=== PATIENT | male | born 1965 | race Caucasian/White ===

== ENCOUNTER 2016-06-14 21:15 | Inpatient (IN) | payer OTHER ==
[~2016-06-14] VITALS: Ht 185.4 cm; Wt 129.0 kg
[~2016-06-14 21:15] MED LIST: ASPI81TA28 PO; DOCU100C31 PO; INSUINJ SC; LISI10TA PO; NAPR375T3 PO; RANI1TAB77 PO; SULF800T23 PO
[2016-06-14] MEDS ORDERED: CEFEPIME IV 2,000 MG in DEXTROSE 5% 100ML 100 ML IV STA (21:48)
[2016-06-14] MEDS ORDERED: SODIUM CHLORIDE 0.9% 1000ML 1,000 ML IV STA ×2 (21:48)
[2016-06-14] MEDS ORDERED: VANCOMYCIN INJ 2,800 MG in SODIUM CHLORIDE 0.9% 500ML 500 ML IV SCH (22:00)
[2016-06-14] MEDS ORDERED: ONDANSETRON INJ 2 MG/ML 2 ML VIAL IV STA (22:01)
[2016-06-14 22:13] LABS: BASO % 0.2 %; BASO ABS # 0.02 K/uL (0-0.2); COMPLETE YES; EOS % 0.7 %; HEMATOCRIT 37.7 % (42-52); IG% 0.5 %; LYMPH % 13.1 %; LYMPH ABS # 1.64 K/uL (1.2-3.4); MEAN CELL VOLUME 79.9 fL (80-100); MEAN CORPUSCULAR HEMOGLOBIN 27.3 pg (25-34); MEAN CORPUSCULAR HGB CONC 34.2 g/dl (32-36); MEAN PLATELET VOLUME 9.2 fL (7.4-10.4); MONO % 6.1 %; NEUT % 79.4 %; PLATELET COUNT 562 K/uL (130-400); RED BLOOD COUNT 4.72 M/uL (4.7-6.1); WHITE BLOOD COUNT 12.55 K/uL (4.8-10.8)
[2016-06-14 22:25] LABS: PARTIAL THROMBOPLASTIN RATIO 1.1; PROTHROMBIN TIME (PATIENT) 11.1 SECONDS (9.0-12.0)
[2016-06-14 22:34] LABS: BLOOD UREA NITROGEN 11 mg/dl (7-18); GLUCOSE 406 mg/dl (70-99)
[2016-06-14 22:35] LABS: ISTAT CREATININE 0.8 mg/dl (0.6-1.3); ISTAT HEMOGLOBIN 13.9 g/dl (14.0-18.0); ISTAT IONIZED CALCIUM 1.13 mmol/l (1.12-1.32)
[2016-06-14 22:35] LABS: ALB/GLOB RATIO 0.6 (0.9-2); ALT/SGPT 24 U/L (12-78); AST/SGOT 14 U/L (15-37); CARBON DIOXIDE 26 mmol/L (21-32); CHLORIDE 96 mmol/L (98-107); MAGNESIUM 1.8 mg/dl (1.8-2.4); POTASSIUM 4.2 mmol/L (3.5-5.1); SODIUM 132 mmol/L (136-145)
[2016-06-14] MEDS ORDERED: GLIP5TAB11 PO (22:38)
[2016-06-14] MEDS ORDERED: INSDGI SC (22:38)
[2016-06-14 22:44] LABS: ALKALINE PHOSPHATASE 249 U/L (45-117); CKMB/CK RATIO 3.8 (0-3.0)
[2016-06-14 22:51] LABS: BETA-HYDROXYBUTYRATE 3.54 mg/dL (0.2-2.81)
--- NOTE | 2016-06-14 22:51 | DIAGNOSTIC IMAGING REPORT ---
CHEST ONE VIEW PORTABLE CLINICAL HISTORY: Sepsis COMPARISON STUDY: No previous studies for comparison. FINDINGS: The heart is at the upper limits of normal in size. The patient is taking a poor inspiration. There is no lobar consolidation. There is mild interstitial thickening finding which is likely accentuated by the patient's large body habitus. There are no pleural effusions.[ IMPRESSION: Mild interstitial thickening, a finding which may be related to technical factors. There is no lobar consolidation. There is no overt failure Electronically signed by: Christiano Urrutia M.D. 06/14/2016 10:50 PM Dictated Date/Time: 06/14/2016 10:49 PM
--- NOTE | 2016-06-14 22:55 | DIAGNOSTIC IMAGING REPORT ---
RIGHT FOOT MIN 3 VIEWS ROUTINE CLINICAL HISTORY: Right foot infection COMPARISON: None. DISCUSSION: There are postsurgical changes of an amputation at the level of the distal first metatarsal. There are postsurgical changes of an amputation at the level of the distal fifth metatarsal. There are old fractures involving the third and fourth metatarsals. There is a soft tissue ulceration at the level of the proximal phalanx the second toe. There is diffuse soft tissue swelling at this level. There is focal osteopenia involving the head of the second metatarsal, with equivocal destructive changes. There is a fracture versus osteomyelitis involving the base of the proximal phalanx of the second toe. IMPRESSION: 1. Postsurgical changes 2. Marked soft tissue swelling involving the second toe with an overlying ulcer 3. Fracture versus pathologic fracture secondary to osteomyelitis involving the base of the proximal phalanx of the second toe. There is also profound osteopenia involving the second metatarsal head with equivocal destructive changes Electronically signed by: Christiano Urrutia M.D. 06/14/2016 10:54 PM Dictated Date/Time: 06/14/2016 10:50 PM
[2016-06-14 23:06] LABS: C-REACTIVE PROTEIN 4.98 mg/dl (0-0.29)
[2016-06-14] MEDS ORDERED: OPTIRAY 320 IV PRN (23:15)
[2016-06-15] VITALS (9 sets, daily range): BP systolic 114–135; BP diastolic 64–83; PULSE 66–80; TEMP 36.2–37.2; O2SAT 92–99; BMI 37.5
[2016-06-15] MEDS ORDERED: NovoLIN-R INSULIN PER UNIT CHARGE IV STA (00:34)
--- NOTE | 2016-06-15 00:35 | EMERGENCY ROOM VISIT NOTE ---
History First contact with patient: 21:29 Chief Complaint: WOUND INFECTION Stated Complaint: DIABETIC ULCER R FT, FEVER Nursing Triage Summary: pt presents to ED B11b with c/o infected wound on foot. pt states he has a hx of great and little toe on right foot amputated in 2012. reports hx of DM. states present problem began "a couple months ago" when callous on bottom/ball of right foot "fell off." reports area underneath second toe and wound on the side of second toe opened up ~2 weeks ago and ankle became swollen. reports yellow green drainage and foul smell to wounds. reports tunneling in wounds. states he was self medicating and has not been to medical at the [facility]way. reports he went today "for something else" and "I just showed it to them too, it smelled so bad in that other bag." pt presents with plastic bag around foot and gauze over wound. pt also associates sob/fevers/chills/decreased appetite upon assessment, pt has wound on bottom/ball right foot measuring 22cm across and 29cm from upper right corner (about 1o clock while looking at wound) to lower left corner. wound has 5cm tunnel in right/upper corner (approx 1o clock) . skin around wound is white to yellow to reddened. yellow/green drainage noted. wound on the left inside of second toe measures is an oval that measures 25 cm at the largest part and 13cm across. yellow/green drainage noted. 20 cm tunnel measured going down toward bottom of foot and toes. pt has a crack-like wound under second toe measuring approx 30cm across. skin around is white/yellow. pt reports decreased sensation in right foot. swelling in foot/ankle ~+3. pedal pulse in left foot palpated. pedal pulse in right foot found by doppler and marked with X History of Present Illness The patient is a 50 year old male who presents to the Emergency Room with complaints of fever, chills, nausea, body aches, shortness of breath, right leg swelling and drainage, high blood sugars and right foot infection for the past week that has been progressively worse. Diabetic ulcer has been present for a few months now. It is any progressive worse. Patient just thought it would go away. He does have neuropathy. He had a fever for the past few days but does not know what the temperature was. He was sent in from the custodial. Patient denies chest pain, vomiting, diarrhea, cough, congestion, headache, neck stiffness. Blood sugars have been in the 400 to 500s per patient. He states he did not seek help as he is up for a parole in 2 weeks. Patient has had osteomyelitis before with a PICC line. No history of heart disease or PE. Patient does not actively smoke. Review of Systems See HPI for pertinent positives & negatives. A total of 10 systems reviewed and were otherwise negative. Past Medical/Surgical History Diabetes, neuropathy, hypertension, hyperlipidemia, GERD, amputation of right foot first and fifth toes from osteomyelitis Social History Smoking Status: Former Smoker Marital Status: single Occupation Status: other Current/Historical Medications Scheduled Amoxicillin & Pot Clavulanate (Augmentin 875-125 mg), 1 TAB PO BID Aspirin (Aspirin Ec), 81 MG PO DAILY Ceftriaxone Sod (Rocephin), 2 GM IV DAILY Docusate Sodium (Docusate Sodium), 100 MG PO DAILY Insulin Aspart (Novolog), 8 UNITS SC AC Insulin Glargine (Lantus), 50 UNITS SC HS Lisinopril (Prinivil), 10 MG PO DAILY Ranitidine HCl (Ranitidine [address]), 150 MG PO BID Scheduled PRN Oxycodone/Acetaminophen 5MG/325MG (Percocet 5MG/325MG), 1 TAB PO Q4H PRN for Pain Allergies Coded Allergies: Morphine (Unverified Allergy, Unknown, RASH, 06/15/14) Physical Exam Vital Signs Date Time Temp Pulse Resp B/P Pulse Ox O2 Delivery O2 Flow Rate FiO2 06/14/16 23:54 74 18 123/67 95 Room Air 06/14/16 22:29 98 Room Air 06/14/16 22:28 85 20 130/76 98 Room Air 06/14/16 21:54 87 06/14/16 21:28 37.0 90 18 148/74 94 Room Air Physical Exam VITALS: Vitals are noted on the nurse's note and reviewed by myself. Vital signs stable. GENERAL: Pleasant male, in no acute distress, nondiaphoretic, well-developed well-nourished. SKIN: Right foot with first and fifth toe amputated with ulcers to the bottom of the foot and top of the foot that is quite edematous malodorous with purulent discharge and surrounding erythema up the foot concerning for osteomyelitis. The rest of the skin was without rashes, erythema, edema, or bruising. There is no tenting of the skin. Capillary reflex less than 2 seconds. HEAD: Normocephalic atraumatic. EARS: External auditory canals clear, tympanic membranes pearly alonso without erythema or effusion bilaterally. EYES: Pupils equal round and reactive to light and accommodation. Conjunctivae without injection, sclerae without icterus. Extraocular movements intact. NOSE: Patent, turbinates without inflammation or discharge. MOUTH: Mucous membranes moist. Pharynx without erythema or exudate. Uvula midline. Airway patent. Tongue does not deviate. NECK: Supple without nuchal rigidity. No lymphadenopathy. No thyromegaly. Cervical spine is nontender. No JVD. HEART: Regular rate and rhythm without murmurs gallops or rubs. LUNGS: Clear to auscultation bilaterally without wheezes, rales or rhonchi. No dullness to percussion. No retractions or accessory muscle use. ABDOMEN: Positive bowel sounds x 4. Normal tympanic percussion. Soft, nontender, without masses or organomegaly. Caceres sign negative. No guarding or rebound tenderness. MUSCULOSKELETAL: No muscle atrophy noted. Right leg is quite edematous up to the knee with pedal pulses +2 equal present bilaterally.Right foot with first and fifth toe amputated with 2.5 cm diameter ulceration present on the plantar surface of his right foot. It is over the 2nd metatarsal. There is currently pus draining from the ulceration. He has a small fissure present on the undersurface of the second toe. There is also pus there. Lastly, there is oval 1.5 x 2.5 cm ulceration present on the dorsum of his foot. There is also creamy pus expressed from this area. to the bottom of the foot and top of the foot that is quite edematous malodorous and surrounding erythema up the foot concerning for osteomyelitis. NEURO: Patient was alert and oriented to person place and time. Decreased sensation up to the ankles bilaterally which is chronic per patient No focal neurological deficits. Medical Decision & Procedures Laboratory Results 06/14/16 22:00 Red Blood Count 4.72, Mean Corpuscular Volume 79.9, Mean Corpuscular Hemoglobin 27.3, Mean Corpuscular Hemoglobin Concent 34.2, Mean Platelet Volume 9.2, Neutrophils (%) (Auto) 79.4, Lymphocytes (%) (Auto) 13.1, Monocytes (%) (Auto) 6.1, Eosinophils (%) (Auto) 0.7, Basophils (%) (Auto) 0.2, Neutrophils # (Auto) 9.98, Lymphocytes # (Auto) 1.64, Monocytes # (Auto) 0.76, Eosinophils # (Auto) 0.09, Basophils # (Auto) 0.02 06/14/16 22:00 Test 06/14/16 22:00 06/14/16 22:03 White Blood Count 12.55 K/uL (4.8-10.8) Red Blood Count 4.72 M/uL (4.7-6.1) Hemoglobin 12.9 g/dL (14.0-18.0) Hematocrit 37.7 % (42-52) Mean Corpuscular Volume 79.9 fL (80-100) Mean Corpuscular Hemoglobin 27.3 pg (25-34) Mean Corpuscular Hemoglobin Concent 34.2 g/dl (32-36) Platelet Count 562 K/uL (130-400) Mean Platelet Volume 9.2 fL (7.4-10.4) Neutrophils (%) (Auto) 79.4 % Lymphocytes (%) (Auto) 13.1 % Monocytes (%) (Auto) 6.1 % Eosinophils (%) (Auto) 0.7 % Basophils (%) (Auto) 0.2 % Neutrophils # (Auto) 9.98 K/uL (1.4-6.5) Lymphocytes # (Auto) 1.64 K/uL (1.2-3.4) Monocytes # (Auto) 0.76 K/uL (0.11-0.59) Eosinophils # (Auto) 0.09 K/uL (0-0.5) Basophils # (Auto) 0.02 K/uL (0-0.2) RDW Standard Deviation 37.8 fL (36.4-46.3) RDW Coefficient of Variation 13.2 % (11.5-14.5) Immature Granulocyte % (Auto) 0.5 % Immature Granulocyte # (Auto) 0.06 K/uL (0.00-0.02) Erythrocyte Sedimentation Rate 74 mm/hr (0-14) Prothrombin Time 11.1 SECONDS (9.0-12.0) Prothromb Time International Ratio 1.0 (0.9-1.1) Activated Partial Thromboplast Time 28.5 SECONDS (21.0-31.0) Partial Thromboplastin Ratio 1.1 Est Creatinine Clear Calc Drug Dose 109.5 ml/min Estimated GFR () 90.2 Estimated GFR (Non- 77.9 BUN/Creatinine Ratio 10.0 (10-20) Bedside Lactic Acid Venous 1.45 mmol/L (0.90-1.70) Calcium Level 9.0 mg/dl (8.5-10.1) Magnesium Level 1.8 mg/dl (1.8-2.4) Total Bilirubin 0.6 mg/dl (0.2-1) Aspartate Amino Transf (AST/SGOT) 14 U/L (15-37) Alanine Aminotransferase (ALT/SGPT) 24 U/L (12-78) Alkaline Phosphatase 249 U/L (45-117) Total Creatine Kinase 40 U/L (39-308) Creatine Kinase MB 1.5 ng/ml (0.5-3.6) Creatine Kinase MB Ratio 3.8 (0-3.0) Troponin I < 0.015 ng/ml (0-0.045) C-Reactive Protein 4.98 mg/dl (0-0.29) Total Protein 8.6 gm/dl (6.4-8.2) Albumin 3.2 gm/dl (3.4-5.0) Globulin 5.4 gm/dl (2.5-4.0) Albumin/Globulin Ratio 0.6 (0.9-2) Beta-Hydroxybutyric Acid 3.54 mg/dL (0.2-2.81) Bedside Hemoglobin 13.9 g/dl (14.0-18.0) Bedside Hematocrit 41 % (42-52) Bedside Sodium 134 mEq/L (135-144) Bedside Potassium 4.5 mEq/L (3.3-5.0) Bedside Chloride 93 mEq/L (101-112) Bedside Total CO2 25 mEq/l (24-31) Anion Gap 21.0 mmol/L (16-25) Bedside Blood Urea Nitrogen 11 mg/dl (7-18) Bedside Creatinine 0.8 mg/dl (0.6-1.3) Bedside Glucose (other) 417 mg/dl (70-99) Bedside Ionized Calcium (Wilner) 1.13 mmol/l (1.12-1.32) Medications Administered Medications (Trade) Dose Ordered Sig/Terence Route Start Time Stop Time Status Last Admin Dose Admin Cefepime HCl 2000 mg/Dextrose 112.5 ml @ 200 mls/hr NOW STAT IV 06/14/16 21:48 06/14/16 22:21 DC 06/14/16 22:34 200 MLS/HR Vancomycin HCl 2800 mg/Sodium Chloride 556 ml @ 200 mls/hr UD IV 06/14/16 22:00 06/24/16 21:59 06/14/16 23:02 200 MLS/HR Sodium Chloride 1,000 ml @ 999 mls/hr Q1H1M STAT IV 06/14/16 21:48 06/14/16 22:48 DC 06/14/16 22:34 999 MLS/HR Sodium Chloride (Nss 1000ml) 1,000 ml @ 125 mls/hr Q8H STAT IV 06/14/16 21:48 06/15/16 05:47 06/14/16 23:54 125 MLS/HR Ondansetron HCl (Zofran Inj) 4 mg NOW STAT IV 06/14/16 22:01 06/14/16 22:02 DC 06/14/16 23:00 4 MG ED Course Prior records reviewed and summarized as above. Triage Nursing notes reviewed. Additional history obtained from correctional officers The patient's history was concerning for swelling and redness of the skin. Differential diagnosis: Etiologies such as osteomyelitis, cellulitis, abscess, MRSA infection, DVT, necrotizing fasciitis, dermatitis, drug eruption, as well as others were entertained.. Physical examination: As above ER treatment provided: Vancomycin, cefepime On reassessment the patient felt better. Diagnostics interpreted by me: EKG: Normal sinus, normal intervals, no acute ST-T wave changes. Impression normal sinus rhythm interpreted by myself The labs revealed leukocytosis. Hyperglycemia without DKA. Wound culture taken and sent to lab for cultures pending Imaging studies: US VENOUS RIGHT LOWER EXTREMITY: Comparison: No prior right lower extremity venous Doppler available. CT right foot 06/14/16. No evidence of deep venous thrombosis. Right inguinal lymph nodes largest approximately 5 x 3 x 2 cm likely reactive lymph notes. Radiologist: Keyon Willoughby M.D. CT EXTREMITY RIGHT LOWER: Comparison: Right foot radiograph 06/14/16 erosive changes of the head of the second metatarsal with fracture deformity in addition to erosive change at the base of the proximal phalanx of the second toe with air densities in the head of the second metatarsal. Findings are compatible with osteomyelitis involving these bones. There is adjacent prominent soft tissue inflammation with soft tissue swelling extending throughout the second toe and also at the plantar soft tissues of the distal foot at the second metatarsal phalangeal level with some extension posteriorly to the midfoot along the expected flexor digitorum tendon. There is soft tissue ulceration at the plantar distal foot at the level of the second metatarsophalangeal joint level. Subcutaneous edema and inflammatory change in the mid and distal foot are noted. No distinct soft tissue abscess is seen. Amputation of the great toe at the first metatarsophalangeal joint level and also of the fifth toe with old posttraumatic deformity of the third through fifth metatarsals are noted. Degenerative changes of several of the joints are present. No joint dislocation. Radiologist: Keyon Willoughby M.D. Consultation: A consultation was placed with Dr. Ramon, hospitalist. The case was discussed and diagnostics were reviewed. The patient was evaluated in the ER for further treatment. I consulted the pharmacist and spoke to Kristine who recommends cefepime and vancomycin. This appears to be osteomyelitis of the right foot. She was started on antibiotics immediately. 2 lines were initiated. Wound culture was taken. He will be evaluated by medicine for possible admission. CT was consistent with osteomyelitis. Patient is given insulin. By the evaluation outlined above emergent etiologies such as DVT, as well as others were deemed relatively unlikely. The pt informed about the findings as listed above. All questions were answered and pleased with the treatment. case reviewed with my Attending Medical Decision As above Impression Primary Impression: Acute osteomyelitis of toe of right foot Additional Impression: Hyperglycemia due to type 2 diabetes mellitus Departure Information Dispostion Being Evaluated By Hospitalist Condition FAIR Prescriptions Amoxicillin & Pot Clavulanate (Augmentin 875-125 mg) 1 Tab Tab 1 TAB PO BID for 14 Days, #28 TAB Start this Antibiotic after 5 days of Rocephin (Ceftriaxone). Prov: Sorin Jerry M.D. 06/16/16 Ceftriaxone Sod (Rocephin) 1 Gm Inj 2 GM IV DAILY for 5 Days, #1 VIAL Start this Antibiotic before starting the Augmentin. Prov: Sorin Jerry M.D. 06/16/16 Insulin Aspart (NOVOLOG) 100 Units/Ml Inj 8 UNITS SC AC for 30 Days, #1 VIAL Prov: Sorin Jerry M.D. 06/16/16 Insulin Glargine (Lantus) 100 Unit/Ml Inj 50 UNITS SC HS for 30 Days, #30 VIAL Prov: Sorin Jerry M.D. 06/16/16 Oxycodone/Acetaminophen 5MG/325MG (PERCOCET 5MG/325MG) Tab 1 TAB PO Q4H Y for Pain for 10 Days, TAB PAIN Prov: April Sharma M.D. 06/16/16 Referrals Adriane ROSA (PCP) Patient Instructions [facility] Problem Qualifiers Additional Impression: Hyperglycemia due to type 2 diabetes mellitus Diabetes mellitus terminal makeup operator insulin use: with fci use Qualified Codes: E11.65 - Type 2 diabetes mellitus with hyperglycemia; Z79.4 - USP ( current) use of insulin
[2016-06-15] MEDS ORDERED: ACETAMINOPHEN 325 MG TAB PO PRN (00:45)
[2016-06-15] MEDS ORDERED: INSULIN GLARGINE PER SC STA (00:45)
[2016-06-15] MEDS ORDERED: ALUMINUM/MAGNESIUM/SIMETH (MAALOX MAX) 30 ML UDC PO PRN (00:45)
[2016-06-15] MEDS ORDERED: MAGNESIUM HYDROXIDE SUSP 30 ML UDC PO PRN (00:45)
[2016-06-15] MEDS ORDERED: ONDANSETRON INJ 2 MG/ML 2 ML VIAL IV PRN ×2 (00:45→13:00)
[2016-06-15] MEDS ORDERED: VANCOMYCIN INJ 1,000 MG in SODIUM CHLORIDE 0.9% 250ML 250 ML IV STA (01:14)
[2016-06-15] MEDS ORDERED: PIPERACILL/TAZOBAC IV 4.5 GM in DEXTROSE 5% 100ML 100 ML IV SCH (01:15)
[2016-06-15] MEDS ORDERED: INSULIN GLARGINE SOLOSTAR 100 UNITS/ML 3 ML PEN SC STA (02:04)
[2016-06-15] MEDS ORDERED: PIPERACILL/TAZOBAC CONSULT ACTIVE PRN (02:30)
[2016-06-15] MEDS ORDERED: VANCOMYCIN CONSULT ACTIVE PRN (02:45)
[2016-06-15] MEDS: PIPERACILL/TAZOBAC IV 4.5 GM in DEXTROSE 5% 100ML IV SCH ×3 (03:40→22:14)
--- NOTE | 2016-06-15 04:38 | Pharmacy Progress Note ---
Pharmacy Antibiotic Consult Date of Service: Jun 15, 2016. Pharmacy Dosing Scope Pharmacy is consulted to initiate Vancomycin IV dosing therapy, order appropriate labs and adjust drug dose/frequency. Subjective The patient is a 50 year old (diabetic, prisoner) male admitted on Jun 15, 2016 at 02:09 for osteomyelitis. Objective Height (Feet): 6 Height (Inches): 1.00 Weight (Kilograms): 129.000 Lab Results (24hrs): Laboratory Tests Test 06/14/16 22:00 BUN/Creatinine Ratio 10.0 Blood Urea Nitrogen 11 mg/dl Creatinine 1.10 mg/dl White Blood Count 12.55 K/uL Red Blood Count 4.72 M/uL Hemoglobin 12.9 g/dL Hematocrit 37.7 % Mean Corpuscular Volume 79.9 fL Mean Corpuscular Hemoglobin 27.3 pg Mean Corpuscular Hemoglobin Concent 34.2 g/dl Platelet Count 562 K/uL Mean Platelet Volume 9.2 fL Neutrophils (%) (Auto) 79.4 % Lymphocytes (%) (Auto) 13.1 % Monocytes (%) (Auto) 6.1 % Eosinophils (%) (Auto) 0.7 % Basophils (%) (Auto) 0.2 % Neutrophils # (Auto) 9.98 K/uL Lymphocytes # (Auto) 1.64 K/uL Monocytes # (Auto) 0.76 K/uL Eosinophils # (Auto) 0.09 K/uL Basophils # (Auto) 0.02 K/uL Micro Results: * Blood and wound cultures are pending Recent Pertinent Medications * Patient received cefepime 2gm IV x1 dose in ED. * Upon admission patient is also receiving Zosyn 4.5gm IV every 8 hours Assessment & Plan * Loading dose: 2800 mg IV (~ 23mg/kg) X 1 dose then 1650mg IV (~ 13.6mg/kg) every 10 hours. * Goal trough level estimate: between 16-19 mcg/mL. * Trough level is ordered for 06/16/16 at 0330 just prior to the 4th dose. Pharmacy will continue to follow and will adjust dose/frequency as necessary. Thank you
--- NOTE | 2016-06-15 05:13 | History and Physical ---
History & Physical Date & Time of Service: Jun 15, 2016 at 05:02 Chief Complaint: Acute Osteomyelitis Of Toe Of Right Foot Primary Care Physician: Adriane ROSA History of Present Illness Source: patient This is a 50 yo m with poorly controlled DM that is presenting to us with Osteomyelitis of the right second toe. The patient that he has no pain in the right LE because of neuropathy. He just noticed that "for a while now" it felt like he was walking on a callus. He looked and noticed a blister. The blister broke approx 2 weeks prior and he noticed green pus that came from it. Because of the increasing swelling and drainage he came to the ED for evaluation. Xray revealed Fracture versus pathologic fracture secondary to osteomyelitis involving the base of the proximal phalanx of the second toe. There is also profound osteopenia involving the second metatarsal head with equivocal destructive changes. He was given Cefepime in the ED. When asked about why he waited so long to be taken care of he states that he will be sent from the [facility] a [facility] in 20 days and he had things he needed to take care of. We discussed the need for IV abx and length of time and he does not feel like the half way house will be able to allow him to have the abx. Past Medical/Surgical History DM HTN s/p amputation of right large toe Family History No pertinent family history Social History Smoking Status: Current Some Day Smoker Smokeless Tobacco Use: No Alcohol Use: none Drug Use: none Marital Status: single Occupational Status: other Multi-Drug Resistant Organisms History of MDRO: Yes Type of MDRO: MRSA Allergies Coded Allergies: Morphine (Unverified Allergy, Unknown, RASH, 06/15/14) Home Medications Scheduled Aspirin (Aspirin Ec), 81 MG PO DAILY Docusate Sodium (Docusate Sodium), 100 MG PO DAILY Glipizide (Glucotrol), 5 MG PO DAILY Insulin Glargine (Lantus), 28 UNITS SC BID Lisinopril (Prinivil), 10 MG PO DAILY Naproxen (Naproxen), 375 MG PO BID Ranitidine HCl (Ranitidine [address]), 150 MG PO BID Review of Systems Constitutional: No fever ENT: No hearing loss Respiratory: No cough, No dyspnea at rest, No dyspnea on exertion, No shortness of breath, No sputum, No wheezing Cardiovascular: No chest pain Abdomen: No nausea, No pain, No vomiting Musculoskeletal: + joint pain (RLE), No muscle pain Neurologic: + numbness/tingling, No balance problems, No memory loss, No weakness Endocrine: No fatigue Integumentary: No rash Physical Exam Vital Signs Date Time Temp Pulse Resp B/P Pulse Ox O2 Delivery O2 Flow Rate FiO2 06/15/16 04:06 37.2 79 16 124/64 92 Room Air 06/15/16 02:27 82 18 108/65 92 06/15/16 01:54 82 18 105/65 95 Room Air 06/14/16 23:54 74 18 123/67 95 Room Air 06/14/16 22:29 98 Room Air 06/14/16 22:28 85 20 130/76 98 Room Air 06/14/16 21:54 87 06/14/16 21:28 37.0 90 18 148/74 94 Room Air General Appearance: WD/WN, no apparent distress Head: normocephalic, atraumatic Eyes: normal inspection ENT: normal ENT inspection Neck: supple Respiratory/Chest: lungs clear, normal breath sounds, no respiratory distress, no accessory muscle use Cardiovascular: regular rate, rhythm, no murmur Abdomen/GI: normal bowel sounds, non tender, soft Back: normal inspection Extremities/Musculoskelatal: + pedal edema (right LE > left ), + pertinent finding (ulceration above the right toe amputation site and below the right second toe, significant swelling of the right LE and inflammation, yellow drainage) Neurologic/Psych: alert, oriented x 3, + pertinent finding (decreased sensation to bilat LE) Skin: normal color, no rash Lymphatic: no adenopathy Diagnostics Laboratory Results Results Past 24 Hours Test 06/14/16 22:00 06/14/16 22:03 06/15/16 00:42 06/15/16 02:16 Range/Units White Blood Count 12.55 4.8-10.8 K/uL Red Blood Count 4.72 4.7-6.1 M/uL Hemoglobin 12.9 14.0-18.0 g/dL Hematocrit 37.7 42-52 % Mean Corpuscular Volume 79.9 80-100 fL Mean Corpuscular Hemoglobin 27.3 25-34 pg Mean Corpuscular Hemoglobin Concent 34.2 32-36 g/dl Platelet Count 562 130-400 K/uL Mean Platelet Volume 9.2 7.4-10.4 fL Neutrophils (%) (Auto) 79.4 % Lymphocytes (%) (Auto) 13.1 % Monocytes (%) (Auto) 6.1 % Eosinophils (%) (Auto) 0.7 % Basophils (%) (Auto) 0.2 % Neutrophils # (Auto) 9.98 1.4-6.5 K/uL Lymphocytes # (Auto) 1.64 1.2-3.4 K/uL Monocytes # (Auto) 0.76 0.11-0.59 K/uL Eosinophils # (Auto) 0.09 0-0.5 K/uL Basophils # (Auto) 0.02 0-0.2 K/uL RDW Standard Deviation 37.8 36.4-46.3 fL RDW Coefficient of Variation 13.2 11.5-14.5 % Immature Granulocyte % (Auto) 0.5 % Immature Granulocyte # (Auto) 0.06 0.00-0.02 K/uL Erythrocyte Sedimentation Rate 74 0-14 mm/hr Prothrombin Time 11.1 9.0-12.0 SECONDS Prothromb Time International Ratio 1.0 0.9-1.1 Activated Partial Thromboplast Time 28.5 21.0-31.0 SECONDS Partial Thromboplastin Ratio 1.1 Sodium Level 132 136-145 mmol/L Potassium Level 4.2 3.5-5.1 mmol/L Chloride Level 96 98-107 mmol/L Carbon Dioxide Level 26 21-32 mmol/L Anion Gap 10.0 21.0 16-25 mmol/L Blood Urea Nitrogen 11 7-18 mg/dl Creatinine 1.10 0.60-1.40 mg/dl Est Creatinine Clear Calc Drug Dose 109.5 ml/min Estimated GFR () 90.2 Estimated GFR (Non- 77.9 BUN/Creatinine Ratio 10.0 10-20 Random Glucose 406 70-99 mg/dl Bedside Lactic Acid Venous 1.45 0.90-1.70 mmol/L Calcium Level 9.0 8.5-10.1 mg/dl Magnesium Level 1.8 1.8-2.4 mg/dl Total Bilirubin 0.6 0.2-1 mg/dl Aspartate Amino Transf (AST/SGOT) 14 15-37 U/L Alanine Aminotransferase (ALT/SGPT) 24 12-78 U/L Alkaline Phosphatase 249 45-117 U/L Total Creatine Kinase 40 39-308 U/L Creatine Kinase MB 1.5 0.5-3.6 ng/ml Creatine Kinase MB Ratio 3.8 0-3.0 Troponin I < 0.015 0-0.045 ng/ml C-Reactive Protein 4.98 0-0.29 mg/dl Total Protein 8.6 6.4-8.2 gm/dl Albumin 3.2 3.4-5.0 gm/dl Globulin 5.4 2.5-4.0 gm/dl Albumin/Globulin Ratio 0.6 0.9-2 Beta-Hydroxybutyric Acid 3.54 0.2-2.81 mg/dL Bedside Hemoglobin 13.9 14.0-18.0 g/dl Bedside Hematocrit 41 42-52 % Bedside Sodium 134 135-144 mEq/L Bedside Potassium 4.5 3.3-5.0 mEq/L Bedside Chloride 93 101-112 mEq/L Bedside Total CO2 25 24-31 mEq/l Bedside Blood Urea Nitrogen 11 7-18 mg/dl Bedside Creatinine 0.8 0.6-1.3 mg/dl Bedside Glucose (other) 417 70-99 mg/dl Bedside Ionized Calcium (Wilner) 1.13 1.12-1.32 mmol/l Bedside Glucose 339 329 70-99 mg/dl Test 06/15/16 04:09 06/15/16 04:44 Range/Units Bedside Glucose 329 70-99 mg/dl Microbiology Results 06/14/16 Blood Culture, Received Pending 06/14/16 Blood Culture, Received Pending 06/14/16 Gram Stain, Received Pending 06/14/16 Wound Culture, Received Pending Diagnostic Radiology RIGHT FOOT MIN 3 VIEWS ROUTINE CLINICAL HISTORY: Right foot infection COMPARISON: None. DISCUSSION: There are postsurgical changes of an amputation at the level of the distal first metatarsal. There are postsurgical changes of an amputation at the level of the distal fifth metatarsal. There are old fractures involving the third and fourth metatarsals. There is a soft tissue ulceration at the level of the proximal phalanx the second toe. There is diffuse soft tissue swelling at this level. There is focal osteopenia involving the head of the second metatarsal, with equivocal destructive changes. There is a fracture versus osteomyelitis involving the base of the proximal phalanx of the second toe. IMPRESSION: 1. Postsurgical changes 2. Marked soft tissue swelling involving the second toe with an overlying ulcer 3. Fracture versus pathologic fracture secondary to osteomyelitis involving the base of the proximal phalanx of the second toe. There is also profound osteopenia involving the second metatarsal head with equivocal destructive changes CHEST ONE VIEW PORTABLE CLINICAL HISTORY: Sepsis COMPARISON STUDY: No previous studies for comparison. FINDINGS: The heart is at the upper limits of normal in size. The patient is taking a poor inspiration. There is no lobar consolidation. There is mild interstitial thickening finding which is likely accentuated by the patient's large body habitus. There are no pleural effusions.[ IMPRESSION: Mild interstitial thickening, a finding which may be related to technical factors. There is no lobar consolidation. There is no overt failure Impression Assessment and Plan This is a 50 yo poorly controlled DM that is presenting to us with OM of the right LE and peripheral neuropathy Osteomyelitis of the right LE - zosyn and vanco - wound and blood cultures - ortho and ID consult - Arterial doppler, weak peripheral pulse on right - leukocytosis- follow CBC - wound consult DM II - Lantus 28 units bid - ISS - bsg hs/ ac - dm educator HTN - continue lisinopril Hyponatremia - repeat bmp in am DVT Prophylaxis - SCD FULL CODE Level of Care Med/Surg Advanced Directives Existing Living Will: No Existing Power of [employer] Worker: No Resuscitation Status FULL RESUSCITATION VTE Prophylaxis VTE Risk Assessment Done? Y/N: Yes Risk Level: Moderate Given or contraindicated: SCD's Social Service Consult None Apply Note Total Time: Critical Care 30 - 74 minutes Assessment and Plan Attending Addendum: I have physically seen and examined this patient, have directed their medical care, have supervised the medical residents activities, and agree with the H&P as noted above, with the following changes: NONE The patient is awake, well-developed and adequately nourished, alert and oriented 3, normocephalic and atraumatic, lying in bed and in no acute distress. HEENT--PERRL, EOMI, mucous membranes and oropharynx normal. Neck--supple, no JVD or bruits, thyroid normal, trachea midline, no adenopathy. Heart--normal S1 and S2, no extra beats, no murmurs, rubs or gallops. Lungs--clear bilaterally with good air movement, no respiratory distress, no accessory muscle use. Abdomen--normal bowel sounds and soft, nontender and nondistended, no hernias or masses, no organomegaly. Extremities--left-no cyanosis, clubbing or edema. Right 1-2+ pitting edema with ulceration on the dorsum of the foot and plantar aspect over the second metatarsal Dermatologic--as above. Neurologic--cranial nerves II through XII grossly intact, decreased sensation bilateral lower extremities Psychiatric--normal affect. Assessment and Plan: Diabetic foot ulcer with osteomyelitis of right lower extremity , with history of previous amputation of right great toe and right first metatarsal--the patient will be admitted to the medical floor. We placed on vancomycin IV per renal dosing, and Zosyn IV. We'll consult wound care, infectious disease and orthopedics. We'll order arterial Doppler bilateral lower extremities to assess for PAD. Patient will likely need a PICC line for 6 weeks of IV antibiotics. He does note that he is supposed to go to [facility] in 20 days, and this will need to be coordinated somehow with social welfare administrator, the [facility] and the above. Diabetes mellitus--continue Lantus insulin 20 units subcutaneous twice a day, glipizide 5 mg by mouth every morning, and place on Accu-Cheks before meals and at bedtime with NovoLog coverage.
--- NOTE | 2016-06-15 06:41 | DIAGNOSTIC IMAGING REPORT ---
RIGHT LOWER EXTREMITY VENOUS DOPPLER CLINICAL HISTORY: Right leg swelling. COMPARISON STUDY: No previous studies for comparison. TECHNIQUE: Sonography of the deep venous system of the right lower extremity was performed. Compression and augmentation were evaluated. FINDINGS: The right common femoral, superficial femoral and popliteal veins were compressible. Augmentation was normal. Flow was shown within the deep calf vessels. Note was made of several moderately enlarged right inguinal lymph nodes that measure up to 5.3 x 1.8 x 2.8 cm. The cortex of these nodes was thickened. IMPRESSION: 1. No evidence of deep venous thrombus within the right lower extremity. 2. Multiple moderately enlarged right inguinal lymph nodes. These nodes are likely reactive given the known right foot infection. A lymphoproliferative process could appear similar although is considered less likely. A follow-up right groin ultrasound in 2 months is recommended to ensure resolution. Electronically signed by: Jose Eduardo Maya M.D. 06/15/2016 6:40 AM Dictated Date/Time: 06/15/2016 6:37 AM
--- NOTE | 2016-06-15 06:44 | DIAGNOSTIC IMAGING REPORT ---
Arterial Doppler right leg RIGHT ART DOP DUPLEX LW EXT UNI CLINICAL HISTORY: Dm, OM, right LE swelling Right TECHNIQUE: Arterial Doppler COMPARISON STUDY: None FINDINGS: Unremarkable velocity characteristics throughout. Waveforms are unremarkable throughout. Ankle brachial index on the right involving the posterior tibial is 1.23. Dorsalis pedis is 1.09 IMPRESSION: Negative study Electronically signed by: Sorin Jean Baptiste M.D. 06/15/2016 6:43 AM Dictated Date/Time: 06/15/2016 6:42 AM
[2016-06-15 06:56] LABS: HEMATOCRIT 32.1 % (42-52); MEAN CELL VOLUME 80.9 fL (80-100); MEAN CORPUSCULAR HEMOGLOBIN 27.2 pg (25-34); MEAN CORPUSCULAR HGB CONC 33.6 g/dl (32-36); MEAN PLATELET VOLUME 9.1 fL (7.4-10.4); PLATELET COUNT 457 K/uL (130-400); RED BLOOD COUNT 3.97 M/uL (4.7-6.1); WHITE BLOOD COUNT 6.98 K/uL (4.8-10.8)
--- NOTE | 2016-06-15 07:13 | DIAGNOSTIC IMAGING REPORT ---
CT right foot RIGHT LOWER EXTREMITY WITH CLINICAL HISTORY: Osteomyelitis impaction TECHNIQUE: Transaxial acquisition with multi axial reformatted images COMPARISON STUDY: None FINDINGS: Findings a rather marked inflammatory change of the soft tissues about the foot. This is most prominent in the region of the second metatarsal phalangeal joint. At this site there is a considerable destructive change involving the distal aspect of the metatarsal and to lesser extent proximal aspect proximal phalanx. A small amount of regional subcutaneous air is present in these regions. This consistent with that of osteomyelitis. Internal abscess or collection is not appreciated. All remaining osseous structures show considerable degenerative changes throughout. No abnormal depressed reaction is present elsewhere. IMPRESSION: 1. Osteomyelitis with associated destructive changes distal aspect second metatarsal as well as proximal phalanx of the second toe. 2. Considerable surrounding granulation and/or inflammatory tissue with subcutaneous and/or soft tissue air. 3. Generalized cellulitis throughout the remainder the foot with generalized degenerative change of all remaining osseous structures Electronically signed by: Sorin Jean Baptiste M.D. 06/15/2016 7:11 AM Dictated Date/Time: 06/15/2016 7:03 AM
[2016-06-15 07:17] LABS: BUN/CREATININE RATIO 10.8 (10-20); CALCIUM 8.3 mg/dl (8.5-10.1); CREATININE 0.87 mg/dl (0.60-1.40); POTASSIUM 3.8 mmol/L (3.5-5.1)
[2016-06-15 07:27] LABS: BETA-HYDROXYBUTYRATE 1.28 mg/dL (0.2-2.81)
[2016-06-15] MEDS ORDERED: PNEUMOCOCCAL ADMINISTRATION CHARGE ONE (08:00)
[2016-06-15] MEDS ORDERED: INFLUENZA VIRUS QUAD VACCINE 0.5 ML SYR IM. ONE (08:00)
[2016-06-15] MEDS ORDERED: PNEUMOCOCCAL POLYSACCHARIDES 25 MCG/0.5 ML VIAL/SYR IM. ONE (08:00)
[2016-06-15] MEDS ORDERED: INFLUENZA ADMINISTRATION CHARGE ONE (08:00)
[2016-06-15] MEDS ORDERED: PHARMACY GLYCEMIC MGMT CONSULT PRN (08:15)
[2016-06-15] MEDS: DOCUSATE SODIUM 100 MG CAP PO SCH (08:51)
[2016-06-15] MEDS: RANITIDINE HCL 150 MG TAB PO SCH ×2 (08:51→20:21)
[2016-06-15] MEDS: VANCOMYCIN INJ 1,650 MG in SODIUM CHLORIDE 0.9% 500ML 500 ML IV SCH ×2 (08:51→18:42)
[2016-06-15] MEDS: LISINOPRIL 10 MG TAB PO SCH (08:52)
[2016-06-15] MEDS: INSULIN GLARGINE SOLOSTAR 100 UNITS/ML 3 ML PEN SC SCH ×2 (08:55→20:58)
[2016-06-15] MEDS ORDERED: GLUCOSE 40% GEL 15 GM TUBE PO PRN (09:00)
[2016-06-15] MEDS ORDERED: VANCOMYCIN INJ 1,000 MG in SODIUM CHLORIDE 0.9% 250ML 250 ML IV SCH (09:00)
[2016-06-15] MEDS ORDERED: DEXTROSE 50% 50 ML SYR IV PRN (09:00)
[2016-06-15] MEDS ORDERED: NAPROXEN 375 MG TAB PO SCH (09:00)
[2016-06-15] MEDS ORDERED: GLUCOSE 10 TABS/TUBE PO PRN (09:00)
[2016-06-15] MEDS ORDERED: GLUCAGON FOR INJ 1 MG VIAL SQ PRN (09:00)
[2016-06-15] MEDS ORDERED: INSULIN ASPART 100 UNITS/ML 3 ML PEN SC SCH (09:00)
--- NOTE | 2016-06-15 09:03 | Pharmacy Progress Note ---
Glycemic Control Intl Consult Date of Service Jun 15, 2016. Scope Glycemic Pharmacist consulted by Dr Jerry on 06/15/16 for glycemic control and to write orders per [facility] inpatient glycemic control protocol Objective Weight (Kilograms): 129.000 Accuchecks BSG (last 24hrs): Test 06/14/16 22:00 06/15/16 00:42 06/15/16 02:16 06/15/16 04:09 Random Glucose 406 mg/dl (70-99) Bedside Glucose 339 mg/dl (70-99) 329 mg/dl (70-99) 329 mg/dl (70-99) Test 06/15/16 06:27 06/15/16 08:14 Random Glucose 316 mg/dl (70-99) Bedside Glucose 319 mg/dl (70-99) Laboratory Data (last 24hrs) Test 06/14/16 22:00 06/14/16 22:03 06/15/16 06:27 Anion Gap 10.0 mmol/L 21.0 mmol/L 10.0 mmol/L BUN/Creatinine Ratio 10.0 10.8 Blood Urea Nitrogen 11 mg/dl 9 mg/dl Creatinine 1.10 mg/dl 0.87 mg/dl Potassium Level 4.2 mmol/L 3.8 mmol/L Sodium Level 132 mmol/L 137 mmol/L White Blood Count 12.55 K/uL 6.98 K/uL Red Blood Count 4.72 M/uL Hemoglobin 12.9 g/dL Hematocrit 37.7 % Mean Corpuscular Volume 79.9 fL Mean Corpuscular Hemoglobin 27.3 pg Mean Corpuscular Hemoglobin Concent 34.2 g/dl Platelet Count 562 K/uL Mean Platelet Volume 9.2 fL Neutrophils (%) (Auto) 79.4 % Lymphocytes (%) (Auto) 13.1 % Monocytes (%) (Auto) 6.1 % Eosinophils (%) (Auto) 0.7 % Basophils (%) (Auto) 0.2 % Neutrophils # (Auto) 9.98 K/uL Lymphocytes # (Auto) 1.64 K/uL Monocytes # (Auto) 0.76 K/uL Eosinophils # (Auto) 0.09 K/uL Basophils # (Auto) 0.02 K/uL Recent Pertinent Medications Outpatient Anti-diabetic Regimen: * Gliipizide 5mg po daily * Lantus 28 units BID * A1c = unknown The patient is currently receiving: * Basal insulin: Lantus 28 units every 12 hours - pt had one dose last night * Regular insulin: 10 units IV x 1 last night Risk Factors for Insulin Resistance: * Infection: osteomyelitis R 2nd toe - IV Vancomycin & Zosyn * IVF: Zosyn mixed in dextrose * Diet: Type 2 DM Assessment & Plan ASSESSMENT: * 50 year old type 2 DM, unknown control, admitted with osteomyelitis of toe, started on IV antibiotics. Patient still hyperglycemic this morning after 10 units regular insulin IV last night and a dose of Lantus, at which time we have received a pharmacy glycemic consult. I will continue patient's Lantus at this time and start correctional and prandial insulin based on patient's weight and home dose. * Accuchecks overnight at this time while titrating insulin doses. * ADA & AACE recommend a goal blood sugar range 140-180 mg/dl for the majority of critically ill & non-critically ill patients. However, more stringent targets may be selected in individual cases. Patient with unknown A1c, will order for tomorrow with AM labs. Start patient on goal range of 120-160mg/dL for patient's age and to facilitate wound healing for osteo diagnosis. PLAN FOR INPATIENT GLYCEMIC CONTROL: * Holding outpatient oral diabetes medications * Basal insulin with LANTUS 28 units SQ BID * Correctional Insulin with NOVOLOG per scale ACHS or Q6hrs while NPO & at 00: 00 and 04:00 overnight * Goal Range: Low 120 mg/dL - High 160 mg/dL * Correction Factor: 25 mg/dL/unit * Nutritional / Prandial insulin per carb ratio of 1 unit per 8 grams CHO consumed * Please note that the plan above was derived based on current level of insulin resistance and hospital stress. These recommendations are appropriate for inpatient admission only. Plan of care upon discharge will need to be reassessed to avoid potential outpatient hypo/hyperglycemia. Thank you.
[2016-06-15] MEDS ORDERED: NURSING VERBAL MED ORDER ONE ×2 (09:15→18:15)
[2016-06-15 09:54] LABS: ESTIMATED AVERAGE GLUCOSE 283 mg/dl; HA1C FLAG Normal (Normal)
--- NOTE | 2016-06-15 09:56 | Medical Consult ---
Consultation Date of Consultation: Jun 15, 2016. Attending Physician: April Sharma M.D. Reason for Consultation: Osteomyelitis History of Present Illness 50-year-old male, presented [facility], with longstanding diabetes mellitus with peripheral neuropathy, status post previous amputations of 2 toes of his right foot, now admitted with several weeks ulceration of his right foot with purulent foul-smelling drainage with progressive redness and swelling. He did not seek medical attention at the [facility] for this problem. We brought to emergency room and found to have evidence of significant infection and CT scan confirms the presence of underlying osteomyelitis. He currently is being treated with a combination of vancomycin, Zosyn, and cefepime. Cultures are pending, Gram stain shows gram-positive cocci. No report of significant fever. Past Medical/Surgical History Medical Problems: (1) Acute osteomyelitis of toe of right foot Status: Acute (2) Hyperglycemia due to type 2 diabetes mellitus Status: Acute Past Medical/Surgical History Diabetes, neuropathy, hypertension, hyperlipidemia, GERD, amputation of right foot first and fifth toes from osteomyelitis Family History No pertinent family history Social History Smoking Status: Current Some Day Smoker Smokeless Tobacco Use: No Alcohol Use: none Drug Use: none Marital Status: single Occupation Status: other Allergies Coded Allergies: Morphine (Unverified Allergy, Unknown, RASH, 06/15/14) Current Inpatient Medications Current Inpatient Medications Medications (Trade) Dose Ordered Sig/Terence Route Start Time Stop Time Status Last Admin Dose Admin Ioversol (Optiray 320) 125 ml UD PRN IV 06/14/16 23:15 06/18/16 23:14 Acetaminophen (Tylenol Tab) 650 mg Q4H PRN PO 06/15/16 00:45 07/15/16 00:44 Al Hydrox/Mg Hydrox/Simethicone (Maalox Max Susp) 15 ml Q4H PRN PO 06/15/16 00:45 07/15/16 00:44 Magnesium Hydroxide (Milk Of Magnesia Susp) 30 ml Q6H PRN PO 06/15/16 00:45 07/15/16 00:44 Ondansetron HCl (Zofran Inj) 4 mg Q6H PRN IV 06/15/16 00:45 07/15/16 00:44 Docusate Sodium (coLACE CAP) 100 mg DAILY PO 06/15/16 09:00 07/15/16 08:59 Insulin Glargine (Lantus Solostar Pen) 28 unit BID SC 06/15/16 09:00 07/15/16 08:59 06/15/16 08:55 28 UNIT Lisinopril (Zestril Tab) 10 mg DAILY PO 06/15/16 09:00 07/15/16 08:59 Naproxen (Naprosyn Tab) 375 mg BID PO 06/15/16 09:00 07/15/16 08:59 Ranitidine HCl 150 mg 150 mg BID PO 06/15/16 09:00 07/15/16 08:59 Piperacillin Sod/ Tazobactam Sod/ Dextrose (Zosyn Iv/D5 100ml) 120 ml @ 30 mls/hr Q8H IV 06/15/16 02:30 07/27/16 02:29 06/15/16 03:40 30 MLS/HR Piperacillin Sod/ Tazobactam Sod 1 ea 1 ea UD PRN N/A 06/15/16 02:30 07/15/16 02:29 Vancomycin HCl/ Sodium Chloride (Vancomycin Inj/ Nss 500ml) 533 ml @ 200 mls/hr Q10H IV 06/15/16 08:00 07/27/16 07:59 06/15/16 08:51 200 MLS/HR Vancomycin HCl (Consult) 1 ea UD PRN N/A 06/15/16 02:45 07/15/16 02:44 Miscellaneous Information (Consult Glycemic Management Pharmacy) 1 ea UD PRN N/A 06/15/16 08:15 07/15/16 08:14 Glucose (Glucose 40% Gel) 15-30 GRAMS 15 GRAMS... UD PRN PO 06/15/16 09:00 07/15/16 08:59 Glucose (Glucose Chew Tab) 4-8 Tablets 4 Tabl... UD PRN PO 06/15/16 09:00 07/15/16 08:59 Dextrose (Dextrose 50% 50ML Syringe) 25-50ML OF 50% DW IV FOR... UD PRN IV 06/15/16 09:00 07/15/16 08:59 Glucagon (Glucagon Inj) 1 mg UD PRN SQ 06/15/16 09:00 07/15/16 08:59 Insulin Aspart (novoLOG ASPART) SLIDING SCALE 0000,0400 DE 06/16/16 00:00 07/16/16 00:00 Insulin Aspart (novoLOG ASPART) SLIDING SCALE Q6 DE 06/15/16 09:20 07/15/16 09:19 Review of Systems All systems were reviewed and are negative except as per HPI Physical Exam Date Time Temp Pulse Resp B/P Pulse Ox O2 Delivery O2 Flow Rate FiO2 06/15/16 07:00 36.9 70 17 131/72 96 Room Air 06/15/16 04:06 37.2 79 16 124/64 92 Room Air 06/15/16 02:27 82 18 108/65 92 06/15/16 01:54 82 18 105/65 95 Room Air 06/14/16 23:54 74 18 123/67 95 Room Air 06/14/16 22:29 98 Room Air 06/14/16 22:28 85 20 130/76 98 Room Air 06/14/16 21:54 87 06/14/16 21:28 37.0 90 18 148/74 94 Room Air General Appearance: WD/WN, no apparent distress Head: normocephalic, atraumatic Eyes: normal inspection, EOMI, sclerae normal ENT: normal ENT inspection, pharynx normal Neck: supple, no adenopathy, thyroid normal, trachea midline Respiratory/Chest: chest non-tender, lungs clear, normal breath sounds, no respiratory distress Cardiovascular: regular rate, rhythm, no gallop, no murmur Abdomen/GI: normal bowel sounds, non tender, soft, no organomegaly Back: normal inspection, no CVA tenderness Extremities/Musculoskelatal: no calf tenderness, + inflammation, + pedal edema Neurologic/Psych: alert, oriented x 3, + sensory deficit (Decreased sensation both lower extremities) Skin: normal color, no rash, + pertinent finding (To ulcerations of right foot with purulent malodorous drainage, erythema and swelling of foot) Lymphatic: no adenopathy Laboratory Results Date/Time Source Procedure Growth Status 06/14/16 22:19 Blood Blood Culture Pending Received 06/14/16 22:00 Blood Blood Culture Pending Received 06/14/16 21:50 Tissue Foot Right Gram Stain - Final Resulted 06/14/16 21:50 Tissue Foot Right Wound Culture Pending Resulted Last 24 Hours Test 06/14/16 22:00 06/14/16 22:03 06/15/16 00:42 06/15/16 02:16 White Blood Count 12.55 K/uL Red Blood Count 4.72 M/uL Hemoglobin 12.9 g/dL Hematocrit 37.7 % Mean Corpuscular Volume 79.9 fL Mean Corpuscular Hemoglobin 27.3 pg Mean Corpuscular Hemoglobin Concent 34.2 g/dl Platelet Count 562 K/uL Mean Platelet Volume 9.2 fL Neutrophils (%) (Auto) 79.4 % Lymphocytes (%) (Auto) 13.1 % Monocytes (%) (Auto) 6.1 % Eosinophils (%) (Auto) 0.7 % Basophils (%) (Auto) 0.2 % Neutrophils # (Auto) 9.98 K/uL Lymphocytes # (Auto) 1.64 K/uL Monocytes # (Auto) 0.76 K/uL Eosinophils # (Auto) 0.09 K/uL Basophils # (Auto) 0.02 K/uL RDW Standard Deviation 37.8 fL RDW Coefficient of Variation 13.2 % Immature Granulocyte % (Auto) 0.5 % Immature Granulocyte # (Auto) 0.06 K/uL Erythrocyte Sedimentation Rate 74 mm/hr Prothrombin Time 11.1 SECONDS Prothromb Time International Ratio 1.0 Activated Partial Thromboplast Time 28.5 SECONDS Partial Thromboplastin Ratio 1.1 Sodium Level 132 mmol/L Potassium Level 4.2 mmol/L Chloride Level 96 mmol/L Carbon Dioxide Level 26 mmol/L Anion Gap 10.0 mmol/L 21.0 mmol/L Blood Urea Nitrogen 11 mg/dl Creatinine 1.10 mg/dl Est Creatinine Clear Calc Drug Dose 109.5 ml/min Estimated GFR () 90.2 Estimated GFR (Non- 77.9 BUN/Creatinine Ratio 10.0 Random Glucose 406 mg/dl Bedside Lactic Acid Venous 1.45 mmol/L Calcium Level 9.0 mg/dl Magnesium Level 1.8 mg/dl Total Bilirubin 0.6 mg/dl Aspartate Amino Transf (AST/SGOT) 14 U/L Alanine Aminotransferase (ALT/SGPT) 24 U/L Alkaline Phosphatase 249 U/L Total Creatine Kinase 40 U/L Creatine Kinase MB 1.5 ng/ml Creatine Kinase MB Ratio 3.8 Troponin I < 0.015 ng/ml C-Reactive Protein 4.98 mg/dl Total Protein 8.6 gm/dl Albumin 3.2 gm/dl Globulin 5.4 gm/dl Albumin/Globulin Ratio 0.6 Beta-Hydroxybutyric Acid 3.54 mg/dL Bedside Hemoglobin 13.9 g/dl Bedside Hematocrit 41 % Bedside Sodium 134 mEq/L Bedside Potassium 4.5 mEq/L Bedside Chloride 93 mEq/L Bedside Total CO2 25 mEq/l Bedside Blood Urea Nitrogen 11 mg/dl Bedside Creatinine 0.8 mg/dl Bedside Glucose (other) 417 mg/dl Bedside Ionized Calcium (Wilner) 1.13 mmol/l Bedside Glucose 339 mg/dl 329 mg/dl Test 06/15/16 04:09 06/15/16 06:27 06/15/16 08:14 Bedside Glucose 329 mg/dl 319 mg/dl White Blood Count 6.98 K/uL Red Blood Count 3.97 M/uL Hemoglobin 10.8 g/dL Hematocrit 32.1 % Mean Corpuscular Volume 80.9 fL Mean Corpuscular Hemoglobin 27.2 pg Mean Corpuscular Hemoglobin Concent 33.6 g/dl RDW Standard Deviation 39.6 fL RDW Coefficient of Variation 13.5 % Platelet Count 457 K/uL Mean Platelet Volume 9.1 fL Sodium Level 137 mmol/L Potassium Level 3.8 mmol/L Chloride Level 101 mmol/L Carbon Dioxide Level 26 mmol/L Anion Gap 10.0 mmol/L Blood Urea Nitrogen 9 mg/dl Creatinine 0.87 mg/dl Est Creatinine Clear Calc Drug Dose 143.0 ml/min Estimated GFR () 116.6 Estimated GFR (Non- 100.6 BUN/Creatinine Ratio 10.8 Random Glucose 316 mg/dl Calcium Level 8.3 mg/dl Beta-Hydroxybutyric Acid 1.28 mg/dL CT right foot RIGHT LOWER EXTREMITY WITH CLINICAL HISTORY: Osteomyelitis impaction TECHNIQUE: Transaxial acquisition with multi axial reformatted images COMPARISON STUDY: None FINDINGS: Findings a rather marked inflammatory change of the soft tissues about the foot. This is most prominent in the region of the second metatarsal phalangeal joint. At this site there is a considerable destructive change involving the distal aspect of the metatarsal and to lesser extent proximal aspect proximal phalanx. A small amount of regional subcutaneous air is present in these regions. This consistent with that of osteomyelitis. Internal abscess or collection is not appreciated. All remaining osseous structures show considerable degenerative changes throughout. No abnormal depressed reaction is present elsewhere. IMPRESSION: 1. Osteomyelitis with associated destructive changes distal aspect second metatarsal as well as proximal phalanx of the second toe. 2. Considerable surrounding granulation and/or inflammatory tissue with subcutaneous and/or soft tissue air. 3. Generalized cellulitis throughout the remainder the foot with generalized degenerative change of all remaining osseous structures Electronically signed by: Sorin Jean Baptiste M.D. 06/15/2016 7:11 AM Dictated Date/Time: 06/15/2016 7:03 AM The status of this report is Signed. Draft = Not yet reviewed or approved by Radiologist. Signed = Reviewed and approved by Radiologist. <AttendingPhy>Toro Barth M.D.</AttendingPhy> <FamilyPhy>Adriane ROSA Assessment & Plan Osteomyelitis and cellulitis involving the right foot in a diabetic male with severe peripheral neuropathy. Given foul odor, worry about potential for gram negatives and anaerobes. Pending further culture results, vancomycin and Zosyn should provide adequate coverage, cefepime has been discontinued. Orthopedic consultation pending, and patient will likely require surgical debridement. Will discuss with all involved. We will continue to follow.
[2016-06-15] MEDS: INSULIN ASPART 100 UNITS/ML 3 ML PEN SC SCH ×5 (10:19→23:52)
[2016-06-15] MEDS ORDERED: MIDAZOLAM HCL 1 MG/ML 2ML VIAL ONE ×3 (12:05→13:30)
[2016-06-15] MEDS ORDERED: FENTANYL CITRATE INJ 50 MCG/1 ML 2 ML VIAL ONE ×2 (12:07→14:30)
[2016-06-15] MEDS ORDERED: PROPOFOL IV EMULSION 10 MG/ML 20 ML VIAL IV ONE ×4 (12:10→13:12)
[2016-06-15] MEDS ORDERED: ROCURONIUM BROMIDE 10 MG/ML 5 ML VIAL ONE (12:10)
[2016-06-15] MEDS ORDERED: POVIDONE-IODINE OP SOLN 30 ML BTL ONE (12:29)
--- NOTE | 2016-06-15 12:33 | History & Physical Bridge Note ---
H&P Re-Evaluation Bridge Note: I have examined the patient, reviewed the History & Physical and in the interval since the performance of the History & Physical I have noted the following changes of clinical significance: consent obtained for right foot transmetatarsal amputation. risks and benefits on consent.No changes noted
--- NOTE | 2016-06-15 12:35 | HISTORY & PHYSICAL EXAMINATION ---
DATE OF ADMISSION: 06/15/2016 HISTORY OF PRESENT ILLNESS: I was asked to see this patient is a 50-year-old diabetic, poorly controlled disease with extensive osteomyelitis history, now has an extensive problem with his right foot second ray has markedly broken down with dorsal and plantar full thickness skin loss. X-rays revealing destructive change in and about the MTP joint. There is also degenerative change to the 3rd and 4th toes that are remaining. He has had previous fifth toe amputation and great toe amputation. PAST MEDICAL HISTORY: Remarkable for diabetes, hypertension, and history of multiple surgical procedures for osteomyelitis of his right foot. FAMILY HISTORY: Nonpertinent. SOCIAL HISTORY: Reveals that he does smoke, no alcohol. He is single. He has a history of MRSA. ALLERGIES: MORPHINE, UNKNOWN. PREADMISSION MEDICATIONS: Include aspirin, Colace, glipizide, insulin, Naprosyn and ranitidine. REVIEW OF SYSTEMS: Reveals no chest pain, shortness of breath, fever or chills. PHYSICAL EXAMINATION: Pertinent orthopedic examination reveals extensive destructive changes of the right foot with previous amputations of the great toe on the fifth toe. He has plantar and dorsal full thickness skin loss, marked foul odor and drainage coming from the foot. LABORATORY WORK: As noted in chart. ASSESSMENT: Extensive destructive Osteomyelitis second ray with extension into the forefoot. At this point in time, a discussion was carried out with the patient concerning level of amputation who wants to try to preserve his foot, so I think a transmetatarsal amputation is the most appropriate procedure at this point in time to try to clear the infection and get primary closure. He understands that this may require revision amputation and/or wound care. He wants to try to avoid a below knee amputation, which was also a recommendation he had in the past. Will perform the transmetatarsal amputation today and observe carefully. LUIS CARLOS
[2016-06-15] MEDS ORDERED: LACTATED RINGER'S 1000ML 1,000 ML IV PRN (12:53)
[2016-06-15] MEDS ORDERED: KETAMINE HCL INJ 50 MG/ML 10 ML VIAL ONE (12:56)
[2016-06-15] MEDS ORDERED: FENTANYL CITRATE INJ 50 MCG/1 ML 2 ML VIAL IV PRN (13:00)
--- NOTE | 2016-06-15 14:09 | [facility] Post Operative Brief Note ---
Immediate Operative Summary Operative Date Jun 15, 2016. Pre-Operative Diagnosis osteomyelitis right forefoot Post-Operative Diagnosis osteomyelitis right forefoot Procedure(s) Performed Right Foot Open Transmetatarsal Amputation Surgeon Dr. Roberto Vallejo Family Lawyer Surgeon(s) Juan Stiles PA-C Estimated Blood Loss 75ml Findings osteo second ray with deformity 3rd/4th metatarsals Fluids (cc crystalloids) 600cc Specimens Specimen A. Right Foot tissue Culture: right foot tissue sent for gram stain, anaerobic, routine C&S, fungal, aerobic Drains none Anesthesia sedation Complication(s) None Disposition Recovery Room / PACU
--- NOTE | 2016-06-15 14:20 | OPERATIVE REPORT ---
DATE OF OPERATION: 06/15/2016 SURGEON: Dr. Vallejo. LOGISTICS SPECIALIST: Linsey. No resident or fellow available. PREOPERATIVE DIAGNOSES: Forefoot osteomyelitis with extensive destruction of the second ray full thickness ulcers dorsomedially in plantar surface of the foot. POSTOPERATIVE DIAGNOSIS: Same. OPERATION PERFORMED: Transmetatarsal amputation, extensive debridement of right forefoot. PERIOPERATIVE SITUATION: Medically cleared male with intractable disease based on diabetes, vascular disease, poor metabolic control, who presents with extensive injury as noted. At this point in time, will require forefoot amputation. Options were discussed concerning BK amputation. He did not want to proceed with that. We wanted to give his foot an attempt salvage. OPERATION: transmetatarsal amputation for osteomyelitis of right foot. PROCEDURE: The patient appropriately identified, site verified, consent verified. Antibiotics were already being run based on ID and medicine recommendations. A tourniquet applied and the foot prepped and draped in usual routine fashion. Tourniquet was inflated to 250 mmHg for a total of 24 minutes. A fish mouth incision was then made and subperiosteal dissection of the forefoot performed. The area of osteomyelitis was then resected using hand bone cutter and rongeurs. The flap was then debrided. Once this was all taken care of the wound, tourniquet was then deflated and then the bleeding controlled with electrocautery. The wound was irrigated with a diluted Betadine. It was then closed with 2-0 Vicryl to close the fascial flaps followed by 2-0 Prolene for the skin. Excellent closure was obtained. The wound was then appropriately dressed with Adaptic 4 x 4 gauze, ABD pads, Kerlix and Coban. The patient was then transferred to the recovery room in satisfactory condition having tolerated the procedure well. Estimated blood loss 75 mL / 600 mL of crystalloid. We admitted to the medical service. I attest to the content of the Intraoperative Record and any orders documented therein. Any exceptions are noted below. MTDD
--- NOTE | 2016-06-15 14:36 | [facility] Operative Report ---
Operative Report Operative Date Jun 15, 2016. Pre-Operative Diagnosis osteomyelitis right forefoot Post-Operative Diagnosis same Procedure(s) Performed s/p right foot transmetatarsal amputation Surgeon Dr. Roberto Vallejo Heel Boom Operator Surgeon(s) Juan Stiles PA-C Estimated Blood Loss 75ml Findings same Fluids 600cc Specimens Specimen A. Right Foot tissue Culture: right foot tissue sent for gram stain, anaerobic, routine C&S, fungal, aerobic Drains none Anesthesia sedation Complication(s) None Disposition Recovery Room / PACU Indications Right foot diabetic foot ulcers noted, imaging obtained, surgery recommended, consents signed. Description of Procedure taken to the OR, prepped and draped, I was present the entire case, please see Dr. Vallejo's op note for further detail. I attest to the content of the Intraoperative Record and any orders documented therein. Any exceptions are noted below.
--- NOTE | 2016-06-15 14:38 | Family Medicine Progress Note ---
Progress Note Date of Service Jun 15, 2016. Subjective Pt evaluation today including: conversation w/ patient, physical exam, chart review, lab review The patient was seen and examined at bedside. No acute overnight events. Patient has no complaints at this time. Patient verbalized understanding of his condition and need for rn long term care Abx and possible surgical intervention. Pt denies having chest pain, shortness of breath, patient has a mild cough that started one week ago. Pt is not in any pain. Has intermitten numbness and tingling of his upper extremities. Plan of care was described to the patient and all questions were answered. Objective Physical Exam General Appearance: WD/WN, no apparent distress, + obese Respiratory/Chest: chest non-tender, lungs clear, normal breath sounds, no respiratory distress, no accessory muscle use Cardiovascular: regular rate, rhythm, no edema, no gallop, no JVD, no murmur Abdomen: normal bowel sounds, non tender, soft, no organomegaly Extremities: + pertinent finding (Two 2cm well demarcated oozing circular ulcers - one on the dorsum aspect of the right foot and one on the plantar aspect, near the lateral side beside the 2nd toe. S/p R big toe amputation. No signs of cellulitis in the LE. Dorsalis pedis pulses decreased over the right and left LE. Minimal hair growth over the distal limbs x 4. FROM in the hands and feed. Non tender feet to palpation.) Neurologic/Psychiatric: + pertinent finding (decreased sensation to light touch over the plantar aspect of both feet bilaterally. ) Skin: + pertinent finding (Two well healed 1.5cm circular lesions over the abdomen - resolved pimples as per patient. ) Assessment and Plan 50M presenting from [facility] with a PMHx of poorly controlled DM s/p right [place] that is presenting with two large ulcerations on this right food. X-ray and CT Scan were suggestion of osteomyelitis of the right foot. ESR and WBC on admission were elevated. Patient has no clinical complaints of pain in the RLE. Physical exam significant for two 2cm diameter weeping ulcers on his right food (one plantar, one dorsal on the medial aspect). S/p Right Foot Open Transmetatarsal Amputation on 06/15/[address] Mead. Osteomyelitis of the right LE - Patient denies any complaints at present. Denies pain in the RLE. Significant neuropathy in the LE bilaterally. Two large ulcers on the right foot. Gram stain of the wound revealed Group B Strep. WBC have improved from admission to this morning. Arterial and Venous Dopper of the RLE revealed no occlusions. - ID and Wound care on board. - Surgery (Dr. Mead) - Right Foot Open Transmetatarsal Amputation planned for today. - c/w IV zosyn and vanco - may need PICC line for IV Abx since he will dc'd from shelter in 20 days to a shelter [place]. - Wound Culture - Group B Strep, sensitivities pending. - f/u operative wound culture. DM II - Pt measures sugars occasionally to be between 150 and 250. Says he gives himself regular insulin doses at home. - BS elevated in hospital. - Glycemic consult ordered. - asthma educator on board. - Will monitor electrolytes. - A1c 11 HTN - Within normal limits. - c/w lisinopril Hyponatremia (resolved) - Sodium of 137 this AM, will continue to monitor. DVT Prophylaxis- Lovenox SQ. Dispo: Full [facility], [facility] anticipating transfer [facility] two weeks. Resident Involvement: Resident Care Provided Care Provided: Adult Hospital Medicine Reviewed: Pt Seen/Exam by Me History see postoperatively complaining of lot of pain in left foot Constitutional: denies: fever Respiratory: negative: short of breath Cardiovascular: denies chest pain General Appearance: no apparent distress Respiratory: lungs clear, no respiratory distress Cardiovascular: regular rate, rhythm Extremities: other (right foot in dressing. cold cailin +) Neurologic/Psychiatric: alert, oriented x 3 Assessment/Plan I have reviewed the medical record and performed a history and physical examination of this patient today. I have discussed the case with Dr. Jerry. The above note reflects my findings, conclusions, and recommendations.
--- NOTE | 2016-06-15 14:40 | CONSULTATION REPORT ---
DATE OF CONSULTATION: 06/15/2016 PATIENT OF: Dr. Roberto Vallejo. CHIEF COMPLAINT: Acute osteomyelitis of right foot and second toe. HISTORY OF PRESENT ILLNESS: This is a 50-year-old white male presented last evening through the ED for osteomyelitis of his right foot and second toe. He is a prisoner at [facility]. The patient states that he has had an ulceration of the toe for several weeks. He felt like he was walking a callus. He is a poorly controlled diabetic with peripheral neuropathy. He has minimal sensation in his foot. He states he had a blister on the bottom of his foot and when it broke, there was green pus. He has been trying to treat it himself while at the group home. He was seen yesterday at sick call for another issue and showed them the wound. He has had decreased appetite for the last several days. He notes chills and possible fevers. He has a history of similar ulceration in 2012 that required amputation of his great toe and little toe as well as the 5th metatarsal head in [place]. He states there was discussion about lower extremity amputation below the knee, but his fast food fry cook thought that the foot could be salvaged. No specific trauma to the foot that he is aware of. No other complaints at this point. PAST MEDICAL HISTORY: Significant for diabetes, hypertension, and GERD. PREVIOUS SURGERIES: Amputation of right great toe and little toe. FAMILY HISTORY: Noncontributory. SOCIAL HISTORY: The patient is currently incarcerated at [facility]. No ETOH use. Single. Occasional tobacco use. ALLERGIES: KNOWN SENSITIVITY TO MORPHINE, WHICH CAUSES A RASH. CURRENT MEDICATIONS: Aspirin 81 mg daily, Colace 100 mg p.o. daily, glipizide 5 mg p.o. daily, Lantus 20 units subQ b.i.d., lisinopril 10 mg p.o. daily, Naprosyn 375 mg p.o. b.i.d., ranitidine 150 mg p.o. b.i.d. REVIEW OF SYSTEMS: Significant for above-stated conditions, otherwise unremarkable. PHYSICAL EXAMINATION: GENERAL: Well-developed, well-nourished middle aged white male in no acute distress. Lying in a bed. Alert and oriented. VITAL SIGNS: Temperature 36.9, pulse 70, BP 131/72, respirations 17, O2 sat 96% on room air. SKIN: Warm and dry with good turgor. No rashes. No current cellulitis. He has a 2.5 cm diameter ulceration present on the plantar surface of his right foot. It is over the 2nd metatarsal. There is currently pus draining from the ulceration. He has a small fissure present on the undersurface of the second toe. There is also pus there. Lastly, there is oval 1.5 x 2.5 cm ulceration present on the dorsum of his foot. There is also creamy pus expressed from this area. HEENT: Normocephalic, atraumatic. EYES: PERRLA, EOMI. HEART: RRR. No MGR. LUNGS: Clear to auscultation bilaterally. No crackles, rhonchi or wheezing. Good air movement. ABDOMEN: Mildly obese, soft, nontender. MUSCULOSKELETAL: Right lower extremity has the above-stated ulcerations on the foot. He has absent the great toe and the little toe. There is swelling in the right lower extremity. Intact motor function to the hip, knee, and ankle. NEUROLOGIC: Alert and oriented x3. He has decreased subjective sensation across the right lower extremity. He does have intact sensation to about the mid mcneil. Below that sensation is intact to firm pressure but is blunted. He does have pain with palpation over the second metatarsal head. LYMPHATICS: No current adenopathy in the inguinal nodes. DATA: WBC is 6.98 today, hemoglobin 10.8, hematocrit 32.1, platelets 457,000. INR 1.0. Chem panel shows a glucose of 319 this morning. Sodium, potassium, chloride, and CO2 are normal, BUN 9, and creatinine 0.87. X-rays obtained last night shows postsurgical changes of the foot. Marked soft tissue swelling involving the second toe with overlying ulcer. There is a pathological fracture secondary to osteomyelitis involving the base of the proximal phalanx of the second toe and the second metatarsal head. Ultrasound obtained last night is negative for DVT. There appeared to be enlarged right inguinal lymph nodes. CT scan imaging of the right foot shows osteomyelitis with destructive changes in the second metatarsal as well as proximal phalanx of the second toe. He has considerable surrounding inflammatory tissue with subcutaneous soft tissue air. IMPRESSION: Right foot diabetic ulceration with underlying acute osteomyelitis. PLAN: The patient was educated regarding today's findings. Necessity of surgical intervention was discussed. The patient is in agreement. He will be n.p.o. today. Anticipate taking him to the OR later today for amputation of the second toe. He understands that this may progress into the forefoot depending on what is found intraoperatively. Again, he will be made n.p.o. The patient does have a history of MRSA and will be treated with vancomycin accordingly. LUIS CARLOS
--- NOTE | 2016-06-15 14:52 | DIAGNOSTIC IMAGING REPORT ---
RIGHT FOOT MIN 3 VIEWS ROUTINE CLINICAL HISTORY: s/p right foot transmetatarsal amputation Right COMPARISON: None. DISCUSSION: Interval resection of the distal aspects of all metatarsals and associated phalanges. Expected soft tissue postoperative change. There is no evidence for soft tissue swelling. IMPRESSION: Operative changes consistent with a distal metatarsophalangeal resection Electronically signed by: Sorin Jean Baptiste M.D. 06/15/2016 2:51 PM Dictated Date/Time: 06/15/2016 2:50 PM
--- NOTE | 2016-06-15 15:17 | Anesthesiology Progress Note ---
Anesthesia Post Op Note Date & Time Jun 15, 2016 at 15:17 Vital Signs Pain Intensity: 3 Vital Signs Past 12 Hours Date Time Temp Pulse Resp B/P Pulse Ox O2 Delivery O2 Flow Rate FiO2 06/15/16 15:09 64 16 06/15/16 15:09 64 16 98 06/15/16 15:08 127/76 06/15/16 15:04 62 16 95 06/15/16 15:04 62 16 06/15/16 15:03 106/69 06/15/16 15:01 36.2 06/15/16 14:59 59 19 97 06/15/16 14:59 59 19 06/15/16 14:58 110/66 06/15/16 14:55 64 17 97 06/15/16 14:55 65 17 06/15/16 14:53 125/75 06/15/16 14:50 60 17 06/15/16 14:50 60 17 92 06/15/16 14:49 62 17 06/15/16 14:49 63 17 96 06/15/16 14:48 112/69 06/15/16 14:44 65 18 06/15/16 14:44 65 18 97 06/15/16 14:43 127/73 06/15/16 14:41 68 16 94 06/15/16 14:41 67 16 06/15/16 14:38 95/63 06/15/16 14:36 67 19 97 06/15/16 14:36 68 19 06/15/16 14:35 69 19 98 06/15/16 14:35 68 19 06/15/16 14:33 100/69 06/15/16 14:30 69 22 06/15/16 14:30 69 22 95 06/15/16 14:28 102/68 06/15/16 14:25 68 20 06/15/16 14:25 67 20 94 06/15/16 14:24 68 19 94 06/15/16 14:24 69 19 06/15/16 14:23 102/61 06/15/16 14:19 81 14 98 06/15/16 14:19 81 14 06/15/16 14:14 72 25 100 06/15/16 14:14 71 25 06/15/16 14:13 141/74 06/15/16 14:09 71 24 06/15/16 14:09 71 24 100 06/15/16 14:09 36.2 80 14 130/77 100 Mask 10 06/15/16 12:21 36.8 68 18 123/72 92 Room Air 06/15/16 08:00 Room Air 06/15/16 07:00 36.9 70 17 131/72 96 Room Air 06/15/16 04:06 37.2 79 16 124/64 92 Room Air Notes Mental Status: alert / awake / arousable, participated in evaluation Pt Amnestic to Procedure: Yes Nausea / Vomiting: adequately controlled Pain: adequately controlled Airway Patency, RR, SpO2: stable & adequate BP & HR: stable & adequate Hydration State: stable & adequate Anesthetic Complications: no major complications apparent
[2016-06-15] MEDS ORDERED: HYDROmorphone INJ 1 MG/ML SYR IV PRN (17:15)
[2016-06-15] MEDS ORDERED: ACETAMINOPHEN IV 100 ML IV PRN (17:30)
[2016-06-15] MEDS ORDERED: KETOROLAC TROMETHAMINE 15 MG/ML VIAL IM PRN (17:30)
--- NOTE | 2016-06-15 17:41 | PROGRESS NOTE ---
DATE: 06/15/2016 DATE: 06/15/2016. Postop check status post transmetatarsal amputation right foot. At this point in time the patient is complaining of pain. He denies nausea, chest pain, shortness of breath, fever or chills. His vital signs are stable. He is afebrile. Wound dressing clean, dry and intact. He is having phantom type pain. At this point in time assessment is table status post transmetatarsal amputation. Plan is to adjust pain medications.
[2016-06-15] MEDS ORDERED: HYDROmorphone HCL 2 MG TAB PO STA (18:09)
[2016-06-15] MEDS: KETOROLAC TROMETHAMINE 15 MG/ML VIAL IV. PRN (18:27)
[2016-06-15] MEDS: OXYCODONE/ACETAMINOPHEN 5-325 TAB PO PRN (19:42)
[2016-06-15] MEDS: GABAPENTIN 100 MG CAP PO SCH (20:21)
[2016-06-15] MEDS: HYDROmorphone INJ 1 MG/ML SYR IV PRN ×2 (20:32→23:42)
[2016-06-16] MEDS: PIPERACILL/TAZOBAC IV 4.5 GM in DEXTROSE 5% 100ML IV SCH ×2 (01:49→11:06)
[2016-06-16] MEDS: OXYCODONE/ACETAMINOPHEN 5-325 TAB PO PRN ×3 (02:21→18:47)
[2016-06-16 03:19] LABS: HEMATOCRIT 30.6 % (42-52); MEAN CELL VOLUME 79.9 fL (80-100); MEAN CORPUSCULAR HEMOGLOBIN 26.9 pg (25-34); MEAN CORPUSCULAR HGB CONC 33.7 g/dl (32-36); MEAN PLATELET VOLUME 8.8 fL (7.4-10.4); PLATELET COUNT 427 K/uL (130-400); RED BLOOD COUNT 3.83 M/uL (4.7-6.1); WHITE BLOOD COUNT 8.59 K/uL (4.8-10.8)
[2016-06-16] MEDS ORDERED: VANCOMYCIN TROUGH SCH (03:30)
[2016-06-16 03:42] LABS: BUN/CREATININE RATIO 11.4 (10-20); CALCIUM 7.8 mg/dl (8.5-10.1); CREATININE 0.87 mg/dl (0.60-1.40); POTASSIUM 3.8 mmol/L (3.5-5.1)
[2016-06-16 03:44] VITALS: BP 130/75; PULSE 75; TEMP 37.1; O2SAT 95
[2016-06-16] MEDS: INSULIN ASPART 100 UNITS/ML 3 ML PEN SC SCH ×4 (04:05→18:59)
[2016-06-16] MEDS: VANCOMYCIN INJ 1,650 MG in SODIUM CHLORIDE 0.9% 500ML 500 ML IV SCH (04:07)
[2016-06-16] MEDS: KETOROLAC TROMETHAMINE 15 MG/ML VIAL IV. PRN ×2 (05:14→14:11)
[2016-06-16 06:47] VITALS: BP 125/79; PULSE 74; TEMP 36.8; O2SAT 95
--- NOTE | 2016-06-16 07:30 | PROGRESS NOTE ---
DATE: 06/16/2016 Postop check status post transmetatarsal amputation for osteomyelitis of his right foot. At this point in time his pain waxes and wanes. He denies any chest pain, shortness of breath, fever, chills, headache, nausea, vomiting. Vital signs are stable. He is afebrile. Wound dressing is clean, has 1 small spot on the plantar surface. It is hard to know whether this is from external or drainage from internal. He did get out of bed. Did have IV problem last night where things leaked so could be related to that. LABORATORY: Hematocrit stable. His white count has defervesced. ASSESSMENT: Doing well. Pain management issues at this point in time with extensive debridement, IV antibiotic cessation should be considered per ID and a sense of length of time. Can likely transition to oral antibiotics due to the fact that the infection has been surgically removed. Leave the final decision on that up to infectious disease. Keep non-weightbearing to the right foot but can rest the heel on the floor if he needs to. After discharge he will need to follow up in the office for suture removal at about 17-18 days.
[2016-06-16] MEDS: GABAPENTIN 100 MG CAP PO SCH ×2 (08:43→14:11)
[2016-06-16] MEDS: LISINOPRIL 10 MG TAB PO SCH (08:43)
[2016-06-16] MEDS: DOCUSATE SODIUM 100 MG CAP PO SCH (08:43)
--- NOTE | 2016-06-16 08:43 | Pharmacy Progress Note ---
Glycemic Control: Progress Nt Date of Service Jun 16, 2016. Scope Glycemic Pharmacist consulted by Dr Jerry on 06/15/16 for glycemic control and to write orders per [facility] inpatient glycemic control protocol. Objective Accuchecks BSG (last 24hrs): Test 06/15/16 11:54 06/15/16 14:35 06/15/16 16:59 06/15/16 20:51 Bedside Glucose 244 mg/dl (70-99) 154 mg/dl (70-99) 167 mg/dl (70-99) 358 mg/dl (70-99) Test 06/15/16 20:53 06/15/16 23:46 06/16/16 03:13 06/16/16 03:32 Bedside Glucose 345 mg/dl (70-99) 316 mg/dl (70-99) 232 mg/dl (70-99) Random Glucose 220 mg/dl (70-99) Test 06/16/16 08:04 Bedside Glucose 187 mg/dl (70-99) Laboratory Data (last 24hrs) Test 06/16/16 03:13 Anion Gap 8.0 mmol/L BUN/Creatinine Ratio 11.4 Blood Urea Nitrogen 10 mg/dl Creatinine 0.87 mg/dl Potassium Level 3.8 mmol/L Sodium Level 137 mmol/L White Blood Count 8.59 K/uL HbA1c: Test 06/15/16 06:27 Hemoglobin A1c 11.5 % (4.5-5.6) H Recent Pertinent Medications Outpatient Anti-diabetic Regimen: * Lantus 28 units BID * Glipizide 5mg PO daily * A1c = 11.5 % 06/15/16 The patient is currently receiving: * Basal insulin: Lantus 28 units every 12 hours * Correctional Insulin: Novolog Correction per scale ACHS Goal Range: Low 120 mg/dL - High 160 mg/dL Correction Factor: 25 mg/dL/unit * Prandial insulin: Per carb ratio of 1 unit per 8 grams CHO consumed * Oral Agents: None currently Risk Factors for Insulin Resistance: * Infection: osteomyelitis of R 2nd toe, receiving Vancomycin + Zosyn * Recent Surgery: POD # 1 s/p R foot transmetatarsal amputation * Diet: ordered T2DM diet Assessment & Plan ASSESSMENT: 06/16/16 * Glycemic control did improve throughout the day yesterday using the current Novolog CF and Lantus doses * However BSG climbed rapidly at bedtime. This is most likely due to lack of administration of ordered insulin with dinner meal. * Fasting BSG elevated this AM 187, despite receiving 10 units of Novolog over night and while having 56 units of basal insulin on board * A1c results reflect poor glycemic control with outpt regimen (eAG ~283mg/dL); he may very well require a large basal insulin dose * Plan for today: would like to trial the same Lantus dose for one more day as the BSG elevation last evening likely due to no prandial insulin w/ prior meal. If HS BSG had been better controlled this AM's fasting result may have been better. * The current Novolog CF and CR are reasonable starting points, the CF and lower the BSG when used, the CR has not yet been utilized PLAN FOR INPATIENT GLYCEMIC CONTROL: * Continuing Lantus 28 units SQ BID * Continuing correction factor of 25 mg/dl/unit * Continuing carb ratio of 1 unit per 8 grams CHO consumed * Continuing goal range of Low 120 mg/dL - High 160 mg/dL * D/C the overnight BSG checks at 0000 and 0400, however check one BSG at 0200 tonight. Plan to stop overnight checks once better controlled. * Please note that the plan above was derived based on current level of insulin resistance and hospital stress. These recommendations are appropriate for inpatient admission only. Plan of care upon discharge will need to be reassessed to avoid potential outpatient hypo/hyperglycemia. Thank you.
[2016-06-16] MEDS ORDERED: ENOXAPARIN 40 MG/0.4 ML SYR SQ SCH (09:00)
--- NOTE | 2016-06-16 09:12 | Orthopedic Progress Note ---
Orthopedic Progress Note Date of Service Jun 16, 2016. Subjective Post OP Day: 1 Reports: complaints (intermittent foot pain), feeling well, Denies: SOB, calf pain, chest pain, light headedness, nausea / vomiting Additional Notes: dressing intact Objective calves soft nontender, N/V intact, dressing C/D/I, incision C/D/I, A&O x3 dressing removed. moderate drainage on bandages. No active bleeding/drainage. vitals good, labs improved. Date Time Temp Pulse Resp B/P Pulse Ox O2 Delivery O2 Flow Rate FiO2 06/16/16 06:47 36.8 74 19 125/79 95 Room Air 06/16/16 03:44 37.1 75 18 130/75 95 Room Air 06/15/16 23:47 37.2 80 18 135/77 93 Room Air 06/15/16 23:45 Room Air 06/15/16 18:22 36.9 74 18 114/69 94 Room Air 06/15/16 17:20 36.3 72 18 134/73 99 Nasal Cannula 2.0 06/15/16 16:30 98 Nasal Cannula 2.0 06/15/16 16:20 36.4 72 18 120/74 98 Nasal Cannula 2.0 06/15/16 15:50 36.4 67 18 134/83 99 Nasal Cannula 2.0 06/15/16 15:28 36.2 66 18 122/83 99 Nasal Cannula 2.0 66 06/15/16 15:26 Nasal Cannula 2.0 06/15/16 15:09 64 16 06/15/16 15:09 64 16 98 06/15/16 15:08 127/76 06/15/16 15:04 62 16 95 06/15/16 15:04 62 16 06/15/16 15:03 106/69 06/15/16 15:01 36.2 06/15/16 14:59 59 19 97 06/15/16 14:59 59 19 06/15/16 14:58 110/66 06/15/16 14:55 64 17 97 06/15/16 14:55 65 17 06/15/16 14:53 125/75 06/15/16 14:50 60 17 06/15/16 14:50 60 17 92 06/15/16 14:49 62 17 06/15/16 14:49 63 17 96 06/15/16 14:48 112/69 06/15/16 14:44 65 18 06/15/16 14:44 65 18 97 06/15/16 14:43 127/73 06/15/16 14:41 68 16 94 06/15/16 14:41 67 16 06/15/16 14:38 95/63 06/15/16 14:36 67 19 97 06/15/16 14:36 68 19 06/15/16 14:35 69 19 98 06/15/16 14:35 68 19 06/15/16 14:33 100/69 06/15/16 14:30 69 22 06/15/16 14:30 69 22 95 06/15/16 14:28 102/68 06/15/16 14:25 68 20 06/15/16 14:25 67 20 94 06/15/16 14:24 68 19 94 06/15/16 14:24 69 19 06/15/16 14:23 102/61 06/15/16 14:19 81 14 98 06/15/16 14:19 81 14 06/15/16 14:14 72 25 100 06/15/16 14:14 71 25 06/15/16 14:13 141/74 06/15/16 14:09 71 24 06/15/16 14:09 71 24 100 06/15/16 14:09 36.2 80 14 130/77 100 Mask 10 06/15/16 12:21 36.8 68 18 123/72 92 Room Air Laboratory Results 24 Hours: Test 06/16/16 03:13 Hematocrit 30.6 % Hemoglobin 10.3 g/dL Assessment & Plan Assessment: Post op day 1 Right foot s/p transmetatarsal amputation for osteomyelitis Plan: Dressing changed this am. Transition to oral antibiotics as soon as able, determined by ID and medical Spoke with [facility]. They have beds in Medical unit Pt may use heel for transfers. Discharge Planning Discharge Planning: other ([facility]) Pain Management: Dilaudid
[2016-06-16] MEDS: INSULIN GLARGINE SOLOSTAR 100 UNITS/ML 3 ML PEN SC SCH (09:25)
[2016-06-16] MEDS: RANITIDINE HCL 150 MG TAB PO SCH (09:26)
--- NOTE | 2016-06-16 09:40 | Family Medicine Progress Note ---
Progress Note Date of Service Jun 16, 2016. Subjective Pt evaluation today including: conversation w/ patient, physical exam, chart review, lab review The patient was seen and examined at bedside. No acute overnight events. Patient reports pain from his right foot, rates the pain as 5/10. patient also reports nausea and constipation. Chart review shows that the pt got Dilautid, Percuset and Tylenol overnight. Pt reports that Dilautid doesn't agree well with the Pt - he gets symptoms of nausea. Pt urinated this morning. Has decreased appetite. Pt doesn't mind going home to half-way but doesn't think he is able to yet. Pt hasn't been ambulating since the surgery. Plan of care was described to the patient and all questions were answered. Constitutional: No chills, No fever, No sweats Respiratory: No cough, No shortness of breath, No sputum, No wheezing Cardiovascular: No chest pain Neurologic: No memory loss Psychiatric: No depression symptoms Objective Physical Exam General Appearance: WD/WN, no apparent distress, + pertinent finding (pt appears well, non septic. ) Respiratory/Chest: chest non-tender, lungs clear, normal breath sounds, no respiratory distress, no accessory muscle use Cardiovascular: regular rate, rhythm, no edema, no gallop, no JVD, no murmur Abdomen: normal bowel sounds, non tender, soft, no organomegaly Extremities: no pedal edema, no calf tenderness, + pertinent finding (s/p 2nd metatarsal amputation, left foot covered in fresh dressing , well healing. feet have equal temperatures bilaterally, no signs of infection in the RLE. ) Neurologic/Psychiatric: alert, normal mood/affect, oriented x 3, + pertinent finding (advanced peripheral neuropathy of the LE, pt cannot feel light touch over the distal leg bilaterally. ) Assessment and Plan 50M presenting from [facility] with a PMHx of poorly controlled DM s/p right [place] that is presenting with two large ulcerations on this right food. X-ray and CT Scan were suggestion of osteomyelitis of the right foot. ESR and WBC on admission were elevated. Patient has no clinical complaints of pain in the RLE. Physical exam significant for two 2cm diameter weeping ulcers on his right food (one plantar, one dorsal on the medial aspect). S/p Right Foot Open Transmetatarsal Amputation on 06/15/[address] Mead. Osteomyelitis of the right LE - Pt has 5/10 pain in the RLE. Significant neuropathy in the LE bilaterally. S /p Right Foot Open Transmetatarsal Amputation on 06/15/[address] Mead. Well healing lesion. - Wound Culture - Group B Strep, sensitivities pending. - Blood Cultures - No growth to date. - Operative wound culture - Many Gram Pos Cocci, Moderate Gram Neg Bacilli, no fungi. Anaerobic cultures pending. - Per ID, Patient can be discharged on 5 days of Rocephin 2mg IV daily followed by two weeks of Augmentin 875mg PO BID. - F/u with Dr. Mead in clinic in 15-20 days for suture removal. - Per ortho note, Keep wound covered, no dressing changes required until follow up visit. DM II - Pt measures sugars occasionally to be between 150 and 250. Says he gives himself regular insulin doses at home. ems educator on board. A1c of 11 - After discussion with religious educator, recommend discharge on 50mg Lantus QHS with meal coverage of Novolog 8units with meals - skin Novolog if the meal is skipped. HTN - Normotensive at present. - c/w lisinopril Hyponatremia (resolved) - Sodium of 137 this AM, will continue to monitor. DVT Prophylaxis- Lovenox SQ. Dispo: Full Code, [facility] anticipating transfer to [facility] in two weeks. Resident Involvement: Resident Care Provided Care Provided: Adult [facility] Medicine
--- NOTE | 2016-06-16 10:47 | Infectious Disease Progress Nt ---
Progress Note Date of Service Jun 16, 2016. Subjective Pt evaluation today including: conversation w/ patient, physical exam, chart review, lab review, review of studies, conversation w/ vocational rehab consultant, review of inpatient medication list Patient now status post transmetatarsal amputation. Expected postoperative pain , now rated about 5/10 in intensity. Currently afebrile. Thus far, cultures growing only group G beta strep. All Other Systems: Reviewed and Negative Medications Current Inpatient Medications Medications (Trade) Dose Ordered Sig/Terence Route Start Time Stop Time Status Last Admin Dose Admin Ioversol (Optiray 320) 125 ml UD PRN IV 06/14/16 23:15 06/18/16 23:14 Acetaminophen (Tylenol Tab) 650 mg Q4H PRN PO 06/15/16 00:45 07/15/16 00:44 06/15/16 16:29 650 MG Al Hydrox/Mg Hydrox/Simethicone (Maalox Max Susp) 15 ml Q4H PRN PO 06/15/16 00:45 07/15/16 00:44 Magnesium Hydroxide (Milk Of Magnesia Susp) 30 ml Q6H PRN PO 06/15/16 00:45 07/15/16 00:44 Ondansetron HCl (Zofran Inj) 4 mg Q6H PRN IV 06/15/16 00:45 07/15/16 00:44 06/16/16 08:43 4 MG Docusate Sodium (coLACE CAP) 100 mg DAILY PO 06/15/16 09:00 07/15/16 08:59 06/16/16 08:43 100 MG Insulin Glargine (Lantus Solostar Pen) 28 unit BID SC 06/15/16 09:00 07/15/16 08:59 06/16/16 09:25 28 UNIT Lisinopril (Zestril Tab) 10 mg DAILY PO 06/15/16 09:00 07/15/16 08:59 06/16/16 08:43 10 MG Ranitidine HCl 150 mg 150 mg BID PO 06/15/16 09:00 07/15/16 08:59 06/16/16 09:26 150 MG Piperacillin Sod/ Tazobactam Sod/ Dextrose (Zosyn Iv/D5 100ml) 120 ml @ 30 mls/hr Q8H IV 06/15/16 02:30 07/27/16 02:29 06/16/16 01:49 30 MLS/HR Piperacillin Sod/ Tazobactam Sod 1 ea 1 ea UD PRN N/A 06/15/16 02:30 07/15/16 02:29 Vancomycin HCl/ Sodium Chloride (Vancomycin Inj/ Nss 500ml) 533 ml @ 200 mls/hr Q10H IV 06/15/16 08:00 07/27/16 07:59 06/16/16 04:07 200 MLS/HR Vancomycin HCl (Consult) 1 ea UD PRN N/A 06/15/16 02:45 07/15/16 02:44 Miscellaneous Information (Consult Glycemic Management Pharmacy) 1 ea UD PRN N/A 06/15/16 08:15 07/15/16 08:14 Glucose (Glucose 40% Gel) 15-30 GRAMS 15 GRAMS... UD PRN PO 06/15/16 09:00 07/15/16 08:59 Glucose (Glucose Chew Tab) 4-8 Tablets 4 Tabl... UD PRN PO 06/15/16 09:00 07/15/16 08:59 Dextrose (Dextrose 50% 50ML Syringe) 25-50ML OF 50% DW IV FOR... UD PRN IV 06/15/16 09:00 07/15/16 08:59 Glucagon (Glucagon Inj) 1 mg UD PRN SQ 06/15/16 09:00 07/15/16 08:59 Insulin Aspart (novoLOG ASPART) SLIDING SCALE ACHS SC 06/15/16 17:15 07/15/16 17:14 06/16/16 09:25 10 UNITS Enoxaparin Sodium (Lovenox Inj) 40 mg QAM SQ 06/16/16 09:00 07/16/16 08:59 06/16/16 08:44 40 MG Oxycodone/ Acetaminophen 1 tab 1 tab Q4H PRN PO 06/15/16 17:15 06/29/16 17:14 06/16/16 06:45 1 TAB Acetaminophen (Ofirmev Iv) 100 ml @ 400 mls/hr Q8H PRN IV 06/15/16 17:30 07/15/16 17:29 Gabapentin (Neurontin Cap) 100 mg TID PO 06/15/16 21:00 07/15/16 20:59 06/16/16 08:43 100 MG Ketorolac Tromethamine (Toradol Inj) 15 mg Q6H PRN IV. 06/15/16 18:30 06/17/16 18:29 06/16/16 05:14 15 MG Insulin Aspart (novoLOG ASPART) SLIDING SCALE TODAY@0200 ONCE SC 06/17/16 02:00 06/17/16 02:01 Objective Vital Signs Date Time Temp Pulse Resp B/P Pulse Ox O2 Delivery O2 Flow Rate FiO2 06/16/16 06:47 36.8 74 19 125/79 95 Room Air 06/16/16 03:44 37.1 75 18 130/75 95 Room Air 06/15/16 23:47 37.2 80 18 135/77 93 Room Air 06/15/16 23:45 Room Air 06/15/16 18:22 36.9 74 18 114/69 94 Room Air 06/15/16 17:20 36.3 72 18 134/73 99 Nasal Cannula 2.0 06/15/16 16:30 98 Nasal Cannula 2.0 06/15/16 16:20 36.4 72 18 120/74 98 Nasal Cannula 2.0 06/15/16 15:50 36.4 67 18 134/83 99 Nasal Cannula 2.0 06/15/16 15:28 36.2 66 18 122/83 99 Nasal Cannula 2.0 66 06/15/16 15:26 Nasal Cannula 2.0 06/15/16 15:09 64 16 06/15/16 15:09 64 16 98 06/15/16 15:08 127/76 06/15/16 15:04 62 16 95 06/15/16 15:04 62 16 06/15/16 15:03 106/69 06/15/16 15:01 36.2 06/15/16 14:59 59 19 97 06/15/16 14:59 59 19 06/15/16 14:58 110/66 06/15/16 14:55 64 17 97 06/15/16 14:55 65 17 06/15/16 14:53 125/75 06/15/16 14:50 60 17 06/15/16 14:50 60 17 92 06/15/16 14:49 62 17 06/15/16 14:49 63 17 96 06/15/16 14:48 112/69 2/9/17 14:44 65 18 06/15/16 14:44 65 18 97 06/15/16 14:43 127/73 06/15/16 14:41 68 16 94 06/15/16 14:41 67 16 06/15/16 14:38 95/63 06/15/16 14:36 67 19 97 06/15/16 14:36 68 19 06/15/16 14:35 69 19 98 06/15/16 14:35 68 19 06/15/16 14:33 100/69 06/15/16 14:30 69 22 06/15/16 14:30 69 22 95 06/15/16 14:28 102/68 06/15/16 14:25 68 20 06/15/16 14:25 67 20 94 06/15/16 14:24 68 19 94 06/15/16 14:24 69 19 06/15/16 14:23 102/61 06/15/16 14:19 81 14 98 06/15/16 14:19 81 14 06/15/16 14:14 72 25 100 06/15/16 14:14 71 25 06/15/16 14:13 141/74 06/15/16 14:09 71 24 06/15/16 14:09 71 24 100 06/15/16 14:09 36.2 80 14 130/77 100 Mask 10 06/15/16 12:21 36.8 68 18 123/72 92 Room Air Physical Exam General Appearance: WD/WN, no apparent distress Eyes: normal inspection, sclerae normal ENT: normal ENT inspection, pharynx normal Neck: supple, no adenopathy, trachea midline Respiratory/Chest: chest non-tender, lungs clear, normal breath sounds, no respiratory distress Cardiovascular: regular rate, rhythm, no gallop, no murmur Abdomen: normal bowel sounds, non tender, soft, no organomegaly Extremities: non-tender, no calf tenderness Neurologic/Psychiatric: alert, oriented x 3 Skin: normal color, warm/dry, no rash Lymphatic: no adenopathy Laboratory Results RUN DATE: 06/15/16 [facility] LAB PAGE 1 RUN TIME: 1505 Specimen Inquiry PATIENT: JADYN PUENTES [id number] LOC: [facility] # : [id number] AGE/SX: 50/M ROOM: [facility] REG : 06/15/[address]: April Sharma M.D. : 1965 BED: 2 DIS : STATUS: ADM IN TLOC: SPEC #: [id number] KARRIE: 06/14/16 STATUS: RES REQ #: [id number] RECD: 06/14/[address]: Pina Brewer PA-C SOURCE: TISSUE ENTR: 06/14/[address]: Dayday Carey M.D. SPDESC: FOOT RIGHT SCI,[employer] [facility] ORDERED: AMANDA LEWIS CUL/DI COMMENTS: Has Specimen Been Obtained/Collected? Y Procedure Result Verified Site GRAM STAIN Final 06/15/16-49 RESULT MANY WBCs SEEN FEW GRAM POSITIVE COCCI DEEP WOUND CULTURE Preliminary 06/15/16-1505 Organism 1 GROUP G BETA STREP QUANITY MANY SENS SENSITIVITY TO FOLLOW Last 24 Hours Test 06/15/16 11:54 06/15/16 14:35 06/15/16 16:59 06/15/16 20:53 Bedside Glucose 244 mg/dl 154 mg/dl 167 mg/dl 345 mg/dl Test 06/15/16 23:46 06/16/16 03:13 06/16/16 03:32 06/16/16 08:04 Bedside Glucose 316 mg/dl 232 mg/dl 187 mg/dl White Blood Count 8.59 K/uL Red Blood Count 3.83 M/uL Hemoglobin 10.3 g/dL Hematocrit 30.6 % Mean Corpuscular Volume 79.9 fL Mean Corpuscular Hemoglobin 26.9 pg Mean Corpuscular Hemoglobin Concent 33.7 g/dl RDW Standard Deviation 38.0 fL RDW Coefficient of Variation 13.4 % Platelet Count 427 K/uL Mean Platelet Volume 8.8 fL Sodium Level 137 mmol/L Potassium Level 3.8 mmol/L Chloride Level 102 mmol/L Carbon Dioxide Level 27 mmol/L Anion Gap 8.0 mmol/L Blood Urea Nitrogen 10 mg/dl Creatinine 0.87 mg/dl Est Creatinine Clear Calc Drug Dose 143.0 ml/min Estimated GFR () 116.6 Estimated GFR (Non- 100.6 BUN/Creatinine Ratio 11.4 Random Glucose 220 mg/dl Calcium Level 7.8 mg/dl Vancomycin Level Trough 11.8 mcg/ml Assessment and Plan Osteomyelitis and cellulitis involving the right foot in a diabetic male with severe peripheral neuropathy, now status post partial right foot amputation. So far cultures only growing group G Streptococcus. I have discontinued vancomycin, and will continue Zosyn at least through today as gram-negative bacilli were seen on Gram stain. Hopefully can transition to IV ceftriaxone which would allow easiest therapy once discharged back to nursing home.
[2016-06-16] MEDS ORDERED: INSULIN REGULAR 5 UNITS in SYRINGE 0 ML IV ONE (11:30)
[2016-06-16] MEDS ORDERED: INSULIN GLARGINE SOLOSTAR 100 UNITS/ML 3 ML PEN SC ONE (11:30)
[2016-06-16 12:48] VITALS: Ht 185.4 cm; Wt 129.0 kg
[2016-06-16] MEDS ORDERED: OXYC-57 PO (12:53)
[2016-06-16] MEDS ORDERED: NVLG SC (14:20)
[2016-06-16] MEDS ORDERED: INSDGI SC (14:20)
[2016-06-16] MEDS ORDERED: CEFT1INJ57 IV (14:46)
[2016-06-16] MEDS ORDERED: AMOX875T PO (14:46)
--- NOTE | 2016-06-16 14:51 | Discharge Instructions ---
Discharge Instructions Admission Reason for Admission: Acute Osteomyelitis Of Toe Of Right Foot Discharge Discharge Diagnosis / Problem: Osteomyelitis of the Right Lower Extremity Discharge Goals Goal(s): Decrease discomfort, Improve function, Increase independence, Improve nutritional status Activity Recommendations Activity Limitations: per Instructions/Follow-up section (Keep non- weightbearing to the right foot but can rest the heel on the floor if he needs to.) Keep non-weightbearing to the right foot but can rest the heel on the floor if needed. Instructions / Follow-Up Instructions / Follow-Up 50M presenting from [facility] with a PMHx of poorly controlled DM that is presenting with two large ulcerations on this right foot. X-ray and CT Scan were suggestive of osteomyelitis in the right 2nd metatarsal (pt's 1st metatarsal was previously removed). ESR and WBC on admission were elevated. Patient has no clinical complaints of pain in the RLE. Physical exam is significant for two 2cm diameter weeping ulcers on his right foot (one plantar, one dorsal on the medial aspect). S/p Right Foot Open Transmetatarsal Amputation on 06/15/[address] Mead. Operative Gram stain of the wound showed many gram positive cocci and moderate gram negative baccilli. Blood cultures are negative to date. The patient's BS were controlled in the hospital with 28units of Lantus BID and Sliding Scale of Novolog with Calori count. Recommendations on discharge is to change the BID Lantus dose to 50units QHS and add Novolog insulin 8units coverage before meals. Hold Novolog if the pt is skipping a meal. Patient is healing well after his 2nd metatarsal amputation. - Discharge to [facility] on a 5 day course of 2g IV Rocephin daily and PO Augmentin 875/125mg Twice Daily for 2 weeks thereafter. - Please do not change the patient's Right Foot Dressing until the surgical follow up appointment in 17-18 days. - Dr Mead has arranged for a follow up appointment in 16-19 days. - Keep non-weightbearing to the right foot but can rest the heel on the floor if needed. Dr. Mead [facility] [place] [facility] [place] Address: [facility] [address], [place] [address] Current Hospital Diet Patient's current hospital diet: Diabetes Type 2 Diet Discharge Diet Recommended Diet: Diabetes Type 2 Diet Procedures Procedures Performed: Right Foot Open Transmetatarsal Amputation Pending Studies Studies pending at discharge: no Laboratory Results Hemoglobin A1c Test 06/15/16 06:27 Range/Units Estimated Average Glucose 283 mg/dl Hemoglobin A1c 11.5 H 4.5-5.6 % Medical Emergencies . Who to Call and When: Medical Emergencies: If at any time you feel your situation is an emergency, please call 911 immediately. . Non-Emergent Contact Non-Emergency issues call your: Primary Care Provider, Surgeon . . "Provider Documentation" section prepared by Sorin Jerry. VTE Core Measure Inpt VTE Proph given/why not?: Enoxaparin (Lovenox)SQ, SCD's Resident Involvement: Resident Care Provided Care Provided: Adult Hospital Medicine
[2016-06-16 14:55] VITALS: BP 132/74; PULSE 86; TEMP 36.9; O2SAT 93
[2016-06-16] MEDS ORDERED: CEFTRIAXONE SOD INJ 2,000 MG in DEXTROSE 5% 50ML 50 ML IV STA (14:56)
[2016-06-16 16:00] VITALS: O2SAT 93
--- NOTE | 2016-06-16 16:04 | Discharge Summary ---
Discharge Summary Admission Date: Jun 15, 2016 at 02:09 Discharge Date: Jun 16, 2016 Discharge Disposition: Acute care facility ([facility]) Principal Diagnosis: Osteomyelitis (Sorin Jerry M.D.) Medication Reconciliation New Medications: Amoxicillin & Pot Clavulanate (Augmentin 875-125 mg) 1 Tab Tab 1 TAB PO BID for 14 Days, #28 TAB Start this Antibiotic after 5 days of Rocephin (Ceftriaxone). Ceftriaxone Sod (Rocephin) 1 Gm Inj 2 GM IV DAILY for 5 Days, #1 VIAL Start this Antibiotic before starting the Augmentin. Insulin Aspart (Novolog) 100 Units/Ml Inj 8 UNITS SC AC for 30 Days, #1 VIAL Oxycodone/Acetaminophen 5MG/325MG (Percocet 5MG/325MG) Tab 1 TAB PO Q4H PRN for Pain for 10 Days, TAB PAIN Changed Medications: Insulin Glargine (Lantus) 100 Unit/Ml Inj 50 UNITS SC HS for 30 Days, #30 VIAL (Changed from: 28 UNITS; BID) Continued Medications: Aspirin (Aspirin Ec) 81 Mg Tab 81 MG PO DAILY Docusate Sodium (Docusate Sodium) 100 Mg Cap 100 MG PO DAILY Lisinopril (Prinivil) 10 Mg Tab 10 MG PO DAILY, TAB Ranitidine HCl (Ranitidine [address]) 150 Mg Tab 150 MG PO BID Discontinued Medications: Glipizide (Glucotrol) 5 Mg Tab 5 MG PO DAILY, TAB Naproxen (Naproxen) 375 Mg Tab 375 MG PO BID Discharge Exam Subjective The patient was seen and examined at bedside. No acute overnight events. Patient reports pain from his right foot, rates the pain as 5/10. Patient also reports nausea and constipation. Chart review shows that the pt got Dilautid, Percuset and Tylenol overnight. Pt reports that Dilautid doesn't agree well with him - he gets symptoms of nausea. Pt urinated this morning. Has decreased appetite. Pt doesn't mind going home to [facility] but doesn't think he is able to yet. Pt hasn't been ambulating since the surgery. Plan of care was described to the patient and all questions were answered. ROS Constitutional: No chills, No fever, No sweats Respiratory: No cough, No shortness of breath, No sputum, No wheezing Cardiovascular: No chest pain Neurologic: No memory loss Psychiatric: No depression symptoms Physical Exam General Appearance: WD/WN, no apparent distress, + pertinent finding (pt appears well, non septic. ) Respiratory/Chest: chest non-tender, lungs clear, normal breath sounds, no respiratory distress, no accessory muscle use Cardiovascular: regular rate, rhythm, no edema, no gallop, no JVD, no murmur Abdomen: normal bowel sounds, non tender, soft, no organomegaly Extremities: no pedal edema, no calf tenderness, + pertinent finding (s/p 2nd metatarsal amputation, left foot covered in fresh dressing , well healing. feet have equal temperatures bilaterally, no signs of infection in the RLE. ) Neurologic/Psychiatric: alert, normal mood/affect, oriented x 3, + pertinent finding (advanced peripheral neuropathy of the LE, pt cannot feel light touch over the distal leg bilaterally. ) (Sorin Jerry M.D.) Review of Systems: Constitutional: No fever Respiratory: No shortness of breath Cardiovascular: No chest pain Physical Exam: General Appearance: no apparent distress Respiratory/Chest: lungs clear, no respiratory distress Cardiovascular: regular rate, rhythm Abdomen / GI: normal bowel sounds, non tender, soft, + pertinent finding ( Right foot in dressing) Neurologic/Psychiatric: alert, oriented x 3 (April Sharma M.D.) Hospital Course 50M presenting from [facility] with a PMHx of poorly controlled DM that is presenting with two large ulcerations on this right foot. X-ray and CT Scan were suggestive of osteomyelitis in the right 2nd metatarsal (pt's 1st metatarsal was previously removed). ESR and WBC on admission were elevated. Patient has no clinical complaints of pain in the RLE. Physical exam was significant for two 2cm diameter weeping ulcers on his right foot (one plantar, one dorsal on the medial aspect). S/p Right Foot Open Transmetatarsal Amputation on 06/15/[address] Mead. Operative Gram stain of the wound showed many gram positive cocci and moderate gram negative baccilli. Blood cultures are negative to date. The patient's BS were controlled in the hospital with 28units of Lantus BID and Sliding Scale of Novolog with Calori count. Recommendations on discharge are to change the BID Lantus dose to QHS and add Novolog insulin coverage before meals. Patient is healing well after his 2nd metatarsal amputation. Discharge to [facility] on a 5 day course of IV Rocephin and PO Abx thereafter for 2 weeks thereafter. Please do not change the patient's Right Foot Dressing until the surgical follow up appointment in 17-18 days. The following medical issues were addressed during the patient's visit: 1. Osteomyelitis of the right LE - Status Post Right Foot Open Transmetatarsal Amputation on 06/15/[address] Mead. - Discharge with IV Rocephin x 5 days and PO Augmentin for 2 weeks thereafter. 2. DM II - Pt measures sugars occasionally to be between 150 and 250. Says he gives himself regular insulin doses but skips the morning dose because he sleeps in. See above for recommended changes to insulin regime. 3. HTN - Normotensive at present. Managed medically. 4.Hyponatremia (resolved) - managed with blood work monitoring and hydration. 5. DVT Prophylaxis- Managed Medically with Lovenox. Total Time Spent: Greater than 30 minutes This includes examination of the patient, discharge planning, medication reconciliation, and communication with other providers. (Sorin Jerry M.D.) I have reviewed the medical record and performed a history and physical examination of this patient today. I have discussed the case with Dr. Jerry . The above note reflects my findings, conclusions, and recommendations. Total Time Spent: Greater than 30 minutes (35 min) (April Sharma M.D.) Discharge Instructions Please refer to the electronic Patient Visit Report (Discharge Instructions) for additional information. (Sorin Jerry M.D.) Follow-Up Please follow up with Dr. Mead in 17-18 days for a post op surgical follow up for the right foot. Dr. Mead [facility] [place] Address: [facility], [place] [address] (Sorin Jerry M.D.) Additional Copies To Adriane ROSA Resident Involvement: Resident Care Provided Care Provided: Adult [facility] (Sorin Jerry M.D.)
[2016-06-16 18:22] VITALS: BP 132/74; PULSE 86; TEMP 36.9; O2SAT 93
[2016-06-16] MEDS ORDERED: INSULIN GLARGINE SOLOSTAR 100 UNITS/ML 3 ML PEN SC SCH (21:00)
[2016-06-17] MEDS ORDERED: INSULIN ASPART 100 UNITS/ML 3 ML PEN SC ONE (02:00)
== END 2016-06-16 20:00 | DRG 617 ==
LOC: ENRESERVDT → ENRESERVTM → C.EDB 21:16 → UNDOADMIN 06-15 02:09 → C.MSW 06-15 02:09
PROVIDERS: ADMIT Hospitalist; ATTEND Family Medicine
PROC: 0Y6M0Z5 Detachment at Right Foot, Complete 2nd Ray, Open Approach (ICD-10-PCS; principal; 2016-06-15 08:45)
DX: E11.69 Type 2 diabetes mellitus with other specified complication (principal); M86.171 Other acute osteomyelitis, right ankle and foot; L03.115 Cellulitis of right lower limb; E87.1 Hypo-osmolality and hyponatremia; Z89.411 Acquired absence of right great toe; E11.65 Type 2 diabetes mellitus with hyperglycemia; I10 Essential (primary) hypertension; F17.210 Nicotine dependence, cigarettes, uncomplicated; Z86.14 Personal history of Methicillin resistant Staphylococcus aureus infection; Z88.5 Allergy status to narcotic agent; Z79.4 Long term (current) use of insulin; Z79.899 Other long term (current) drug therapy; Z79.82 Long term (current) use of aspirin; E11.40 Type 2 diabetes mellitus with diabetic neuropathy, unspecified; M85.80 Other specified disorders of bone density and structure, unspecified site; D72.829 Elevated white blood cell count, unspecified; E11.621 Type 2 diabetes mellitus with foot ulcer; L97.519 Non-pressure chronic ulcer of other part of right foot with unspecified severity; K21.9 Gastro-esophageal reflux disease without esophagitis; Z89.421 Acquired absence of other right toe(s); E78.5 Hyperlipidemia, unspecified; E66.9 Obesity, unspecified; Z68.37 Body mass index [BMI] 37.0-37.9, adult